=== PATIENT | female | born 1990 | race Caucasian/White ===

== ENCOUNTER 2016-02-25 01:14 | Emergency (ER) | payer SELFPAY ==
[~2016-02-25] VITALS: Ht 160 cm; Wt 53.5 kg
[~2016-02-25 01:14] MED LIST: ATEN-51 PO; HYDR-3498 PO; IBUP-1542 PO
[2016-02-25 01:17] VITALS: Ht 160 cm; Wt 53.5 kg
[2016-02-25] MEDS ORDERED: SOD CHLORIDE 0.9% 1,000 ML IV STA (02:20)
[2016-02-25] MEDS ORDERED: ONDANSETRON 4 MG INJ IV STA (02:20)
[2016-02-25] MEDS ORDERED: morphine 4 MG/ML VIAL IV STA ×2 (02:20→04:55)
[2016-02-25] MEDS ORDERED: LORAZEPAM 2 MG INJ IV ONE ×2 (02:30→04:00)
[2016-02-25 02:49] LABS: BASOPHILS % 0.4 % (0.0-2.0); EOSINOPHILS # 0.1 10^3/ul (0.0-0.5); HEMATOCRIT 38.6 % (37.0-47.0); HEMOGLOBIN 13.4 g/dl (12.0-16.0); MEAN CORPUSCULAR HEMOGLOBIN 26.9 pg (29.0-33.0); MEAN CORPUSCULAR HGB CONC 34.6 g/dl (32.0-37.0); MEAN CORPUSCULAR VOLUME 77.9 fl (82.0-101.0); MONOCYTE # 1.2 10^3/ul (0.3-0.9); MONOCYTES % 10.7 % (0.0-11.0); NEUTROPHIL # 6.8 10^3/ul (1.6-7.5); NEUTROPHILS % 60.9 % (39.0-77.0); PLATELET COUNT 229 10^3/UL (140-440); RED BLOOD COUNT 4.96 10^6/ul (4.20-5.40); RED CELL DISTRIBUTION WIDTH 12.3 % (11.5-14.5); UNCORRECTED WBC 11.1 10^3/ul (4.8-10.8); WHITE BLOOD COUNT 11.1 10^3/ul (4.8-10.8)
[2016-02-25 02:52] LABS: POTASSIUM 4.4 mmol/L (3.5-5.1)
[2016-02-25 02:54] LABS: ALBUMIN/GLOBULIN RATIO 0.9; BILIRUBIN,INDIRECT 0.2 mg/dl (0-1.1); BILIRUBIN,TOTAL 0.2 mg/dl (0.2-1.3); CREATININE 0.48 mg/dl (0.44-1.00); TOTAL PROTEIN 8.4 g/dl (6.1-8.1)
[2016-02-25 02:55] LABS: CALCIUM 9.3 mg/dl (8.4-10.2)
[2016-02-25 02:56] LABS: CONDITION 1; LH ANALYZER COMMENTS 1
[2016-02-25 03:06] LABS: ADD UMIC YES; URINE BILIRUBIN (Dip) NEGATIVE (NEGATIVE); URINE BLOOD (Dip) 3+ (NEGATIVE); URINE COLOR LT. YELLOW (YELLOW); URINE GLUCOSE (Dip) NEGATIVE (NEGATIVE); URINE KETONES (Dip) NEGATIVE (NEGATIVE); URINE LEUKOCYTE ESTERASE (Dip) 1+ (NEGATIVE); URINE NITRITE (Dip) NEGATIVE (NEGATIVE); URINE TOTAL PROTEIN (Dip) NEGATIVE (NEGATIVE); URINE UROBILINOGEN (Dip) 0.2 E.U./dL (0.1-1.0)
[2016-02-25 03:26] LABS: BACTERIA,URINE MANY
[2016-02-25 03:27] LABS: URINE RBCS >200 /HPF (0)
[2016-02-25 03:28] LABS: SQUAMOUS EPITHELIAL CELL,UR MODERATE
[2016-02-25] MEDS ORDERED: CEFTRIAXONE 1 GM/50 ML (PMX) 50 ML IVPB ONE (04:00)
[2016-02-25] MEDS ORDERED: SOD CHLORIDE 0.9% 1,000 ML IV ONE ×2 (04:00→05:30)
--- NOTE | 2016-02-25 04:30 | RADRPT ---
PROCEDURE: CT Abdomen and pelvis without contrast. CLINICAL INDICATION: Abdominal pain. TECHNIQUE: CT scan of the abdomen and pelvis was performed on the [employer] [facility] 6 4 slice VCT scanner. Contiguous axial images using 2.5 mm slice thickness were obtained from the hong ng bases to the ischial tuberosities without intravenous contrast. Coronal and sagittal reformatted images were also obtained. Images were reviewed on the PACS workstation. One or more of the following dose reduction techniques were used: - Automated exposure control. - Adjustment of the mA and/or kV according to patient size. - Use of iterative reconstruction technique. Exam CTD/vol = 5.55 mGy. Total exam DLP = 308.47 mGy-cm. COMPARISON: None. FINDINGS: Evaluation of the lung bases demonstrates minimal left basilar atelectasis. Abdomen: The liver is normal in size. There is no focal mass or dilatation of the biliary tree. T he gallbladder is not distended. The spleen, pancreas and bilateral adrenal glands are within sandra l limits. Bilateral kidneys are normal in size with no contour deforming mass identified. There is no radiopaque renal or ureteral calculus identified. There is no hydronephrosis or hydroureter. T here is no retroperitoneal adenopathy. The abdominal aorta is of normal caliber. There is moderate retained stool within the colon. There is no bowel obstruction or free air. A no rmal appendix is identified. There is no diverticulosis or diverticulitis. There is no ascites. Pelvis: The bladder demonstrates mild wall thickening. The uterus and adnexa are within normal rendon its. There is no significant pelvic adenopathy or free fluid. Evaluation of the osseous structures demonstrates no suspicious lytic or blastic lesion. IMPRESSION: Mild bladder wall thickening could suggest cystitis. Clinical correlation is needed. Moderate retained stool within the colon. .Jake Sanders MD, Date Time Electronically viewed and signed by .Jake Sanders MD, MD on 02/25/2016 04:30 .T/
[2016-02-25] MEDS ORDERED: NAPR-688 PO (04:59)
[2016-02-25] MEDS ORDERED: CIPR500T4 PO (04:59)
[2016-02-25] MEDS ORDERED: POLY17PO6 PO (05:02)
[2016-02-25] MEDS ORDERED: HYDR-906 PO (05:02)
[2016-02-25] MEDS ORDERED: MAGN296S40 PO (05:02)
[2016-02-25] MEDS ORDERED: ONDANSETRON 4 MG INJ IV PRN (06:30)
[2016-02-25] MEDS ORDERED: ACETAMINOPHEN 325 MG TAB PO PRN (06:30)
[2016-02-25 07:03] LABS: BARBITURATES Negative (NEGATIVE); BENZODIAZEPINES Negative (NEGATIVE); CANNABINOIDS Positive (NEGATIVE); COCAINE Negative (NEGATIVE); OPIATES Negative (NEGATIVE)
--- NOTE | 2016-02-25 07:22 | ERD ---
ER Documentation Chief Complaint Date/Time DATE: 02/25/16 TIME: 07:18 Chief Complaint lower abd pain x 1 week HPI This 25-year-old female presents with lower abdominal pain around her bladder area for one week. She's also had increased urinary frequency. Denies fever and chills. The pain is a achy pain that does not radiate. ROS All systems reviewed and are negative except as per history of present illness. Medications Home Meds Active Scripts Hydrocodone/Acetaminophen ([place] 5-325 Tablet) 1 Each Tablet, 1 EACH PO Q6 Y for SEVERE PAIN LEVEL 7-10, #10 TAB Prov:ILEANA BARILLAS DO 02/25/16 Magnesium Citrate* (Magnesium Citrate*) 296 Ml Solution, 296 ML PO ONCE, #1 BOTTLE Prov:ILEANA BARILLAS DO 02/25/16 Polyethylene Glycol* (Miralax*) 17 Gm Powd.pack, 17 GM PO DAILY, #7 Prov:NARGISILEANA DO 02/25/16 Naproxen* (Naproxen*) 500 Mg Tablet, 500 MG PO BID, #20 TAB Prov:NARGISILEANA DO 02/25/16 Ciprofloxacin Hcl* (Ciprofloxacin Hcl*) 500 Mg Tablet, 500 MG PO BID for 5 Days , TAB Prov:NARGISILEANA DO 02/25/16 Ibuprofen* (Ibuprofen*) 600 Mg Tablet, 600 MG PO Q6H Y for pa, #30 TAB Prov:KATERINE CALDERON [employer] 04/25/15 Hydrocodone Bit-Acetaminophen* ([place]*) 5-325 Mg Tab, 1 TAB PO Q4H Y for sev, # 30 TAB Prov:KATERINE CALDERON [employer] 04/25/15 Reported Medications Atenolol* (Atenolol*) 25 Mg Tablet, 25 MG PO DAILY, #30 TAB 09/20/15 Allergies Allergies: Coded Allergies: No Known Drug Allergy (Verified Allergy, Unknown, 09/20/15) PMhx/Soc History of Surgery: No Anesthesia Reaction: No Hx Neurological Disorder: No Hx Respiratory Disorders: No Hx Cardiac Disorders: Yes (HTN) Hx Psychiatric Problems: Yes (anxiety) Hx Miscellaneous Medical Probl: Yes (thyroid problem) Hx Alcohol Use: No Hx Substance Use: Yes (METH, marijuana last used yesterday morning) Hx Tobacco Use: No Smoking Status: Never smoker Physical Exam Vitals Vital Signs Date Time Temp Pulse Resp B/P Pulse Ox O2 Delivery O2 Flow Rate FiO2 02/25/16 06:00 131 22 143/87 100 Room Air 02/25/16 04:00 134 22 139/83 100 Room Air 02/25/16 02:06 143 17 143/81 100 Room Air 02/25/16 01:17 98.6 159 20 143/82 100 Physical Exam Const: [] No distress Head: Atraumatic Eyes: Normal Conjunctiva ENT: Normal External Ears, Nose and Mouth. Neck: Full range of motion..~ No meningismus. Resp: Clear to auscultation bilaterally Cardio: Regular tachycardia, no murmurs Abd: Soft, super B tenderness without guarding or rebound, non distended. Normal bowel sounds Skin: No petechiae or rashes Back: No midline or flank tenderness Ext: No cyanosis, or edema Neur: Awake and alert Psych: Normal Mood and Affect Result Diagram: 02/25/1621902/25/16 0220 Results 24 hrs Laboratory Tests Test 02/25/16 02:20 02/25/16 05:29 Alanine Aminotransferase (ALT/SGPT) 47IU/L Albumin 4.0g/dl Albumin/Globulin Ratio 0.90 Alkaline Phosphatase 220IU/L Anion Gap 20 Aspartate Amino Transf (AST/SGOT) 51IU/L Basophils # 0.010^3/ul Basophils % 0.4% Blood Morphology Comment Blood Urea Nitrogen 18mg/dl Calcium Level 9.3mg/dl Carbon Dioxide Level 26mmol/L Chloride Level 103mmol/L Creatinine 0.48mg/dl Direct Bilirubin 0.00mg/dl Eosinophils # 0.110^3/ul Eosinophils % 1.0% Globulin 4.40g/dl Glucose Level 99mg/dl Hematocrit 38.6% Hemoglobin 13.4g/dl Indirect Bilirubin 0.2mg/dl Lipase 112U/L Lymphocytes # 3.010^3/ul Lymphocytes % 27.0% Mean Corpuscular Hemoglobin 26.9pg Mean Corpuscular Hemoglobin Concent 34.6g/dl Mean Corpuscular Volume 77.9fl Mean Platelet Volume 9.0fl Monocytes # 1.210^3/ul Monocytes % 10.7% Neutrophils # 6.810^3/ul Neutrophils % 60.9% Nucleated Red Blood Cells # 0.010^3/ul Nucleated Red Blood Cells % 0.0/100WBC Platelet Count 36618^3/UL Potassium Level 4.4mmol/L Red Blood Count 4.9610^6/ul Red Cell Distribution Width 12.3% Sodium Level 145mmol/L Total Bilirubin 0.2mg/dl Total Protein 8.4g/dl Urine Amphetamines Screen Positive Urine Bacteria MANY Urine Barbiturates Negative Urine Benzodiazepines Screen Negative Urine Bilirubin NEGATIVE Urine Cannabinoids Positive Urine Clarity CLEAR Urine Cocaine Screen Negative Urine Color LT. YELLOW Urine Glucose NEGATIVE% Urine Hemoglobin 3+ Urine Ketones NEGATIVE Urine Leukocyte Esterase 1+ Urine Microscopic RBC >200/HPF Urine Microscopic WBC 0-2/HPF Urine Nitrite NEGATIVE Urine Opiates Screen Negative Urine Specific [place] 1.020 Urine Squamous Epithelial Cells MODERATE Urine Total Protein NEGATIVE Urine Urobilinogen 0.2 E.U./dL Urine pH 5.5 White Blood Count 11.110^3/ul Lactic Acid Level 1.0mmol/L Current Medications Medications (Trade) Dose Ordered Sig/Demar Route PRN Reason Start Time Stop Time Status Last Admin Dose Admin Sodium Chloride (NS) 1,000 ml @ 1,000 mls/hr Q1H STAT IV 02/25/16 02:20 02/25/16 03:19 DC 02/25/16 02:35 Morphine Sulfate (morphine) 4 mg ONCE STAT IV 02/25/16 02:20 02/25/16 02:21 DC 02/25/16 02:35 Ondansetron HCl (Zofran Inj) 4 mg ONCE STAT IV 02/25/16 02:20 02/25/16 02:21 DC 02/25/16 02:35 Lorazepam 1 mg 1 mg ONCE ONCE IV 02/25/16 02:30 02/25/16 02:31 DC 02/25/16 02:36 Ceftriaxone Sodium 50 ml @ 100 mls/hr ONCE ONCE IVPB 02/25/16 04:00 02/25/16 04:29 DC 02/25/16 03:59 Sodium Chloride (NS) 1,000 ml @ 1,000 mls/hr Q1H ONCE IV 02/25/16 04:00 02/25/16 04:59 DC 02/25/16 04:01 Lorazepam (Ativan) 1 mg ONCE ONCE IV 02/25/16 04:00 02/25/16 04:01 DC 02/25/16 03:59 Morphine Sulfate 4 mg 4 mg ONCE STAT IV 02/25/16 04:55 02/25/16 04:56 DC 02/25/16 05:00 Sodium Chloride (NS) 1,000 ml @ 1,000 mls/hr Q1H ONCE IV 02/25/16 05:30 02/25/16 06:29 DC 02/25/16 05:32 Procedures/MDM Patient with urinary check infection and recent methamphetamine use causing tachycardia. He was given 4 mg of morphine as well as IV fluid which decreased her pain she is also given Zofran which resulted nausea completely. Her heart rate was reduced with Ativan and multiple liters of normal saline. She is still slightly tachycardic is positive for methamphetamines. I'm discharging her with MiraLAX, magnesium citrate, [place], ciprofloxacin for 5 days. Naproxen for pain also, primary care follow-up in the next 2-3 days. Departure Diagnosis: Primary Impression: Constipation Additional Impressions: UTI (urinary tract infection) Methamphetamine use Condition: Stable Patient Instructions: Understanding Urinary Tract Infections (UTIs), Constipation (Adult) ILEANA BARILLAS DO Feb 25, 2016 07:22
[2016-02-25 07:24] VITALS: BP 119/179; PULSE 121; RESP 18; TEMP 98.4
== END 2016-02-25 07:40 | disposition home or self-care (01) ==
LOC: E/R 01:14 → UNDOADMIN 06:10 → MS4 06:10 → UNDODISIN 10:15
DX: K59.00 Constipation, unspecified (principal); N39.0 Urinary tract infection, site not specified; F15.10 Other stimulant abuse, uncomplicated; I10 Essential (primary) hypertension; R40.2142 Coma scale, eyes open, spontaneous, at arrival to emergency department; R40.2252 Coma scale, best verbal response, oriented, at arrival to emergency department; R40.2362 Coma scale, best motor response, obeys commands, at arrival to emergency department
CPT/HCPCS: 36415; 74176; 80053; 80307; 81001; 83605; 83690; 85025; 87040; 87086; 93005; 96361; 96374; 96375; 96376; 99285; J0696; J2060; J2270; J2405; J7030; 81003

== ENCOUNTER 2016-05-16 20:34 | Inpatient (IN) | payer MEDICAID ==
[~2016-05-16] VITALS: Ht 162.6 cm; Wt 54.4 kg
[~2016-05-16 20:34] MED LIST changes: +CIPR500T4 PO; +HYDR-906 PO; +MAGN296S40 PO; +NAPR-688 PO; +POLY17PO6 PO
[2016-05-16] MEDS ORDERED: morphine 4 MG/ML VIAL IV STA ×2 (21:15→22:25)
[2016-05-16] MEDS ORDERED: SOD CHLORIDE 0.9% 2,000 ML IV STA (21:15)
[2016-05-16] MEDS ORDERED: ONDANSETRON 4 MG INJ IV STA (21:15)
--- NOTE | 2016-05-16 21:36 | ERA ---
ER Documentation Chief Complaint Date/Time DATE: 05/16/16 TIME: 21:31 Chief Complaint periumbilical pain since this morning HPI Patient is a 25-year-old female who reports stabbing epigastric pain since this morning. She states it was sudden in onset and has not relented since this morning. She says movement makes it worse nothing makes it better. It does not radiate through to the back. She says she is noticing that her heart rate feels a little fast and this is making her feel little short of breath. She denies any fever, coughing, congestion, rhinorrhea, sore throat, otalgia, dizziness, loss of consciousness. She denies any fever, nausea, vomiting, diarrhea, dysuria, hematuria, flank, back pain. She states she has never experienced this before. She denies any lower extremity edema, recent travel, abnormal bleeding, bruises, or rashes. She states she is not . In the remainder of the systems are negative per ROS All systems reviewed and are negative except as per history of present illness. Medications Home Meds Discontinued Reported Medications Atenolol* (Atenolol*) 25 Mg Tablet, 25 MG PO DAILY, #30 TAB 09/20/15 Discontinued Scripts Hydrocodone/Acetaminophen ([place] 5-325 Tablet) 1 Each Tablet, 1 EACH PO Q6 Y for SEVERE PAIN LEVEL 7-10, #10 TAB Prov:NARGISILEANA DO 02/25/16 Magnesium Citrate* (Magnesium Citrate*) 296 Ml Solution, 296 ML PO ONCE, #1 BOTTLE Prov:NARGISILEANA DO 02/25/16 Polyethylene Glycol* (Miralax*) 17 Gm Powd.pack, 17 GM PO DAILY, #7 Prov:NARGISILEANA DO 02/25/16 Naproxen* (Naproxen*) 500 Mg Tablet, 500 MG PO BID, #20 TAB Prov:ILEANA BARILLAS DO 02/25/16 Ciprofloxacin Hcl* (Ciprofloxacin Hcl*) 500 Mg Tablet, 500 MG PO BID for 5 Days , TAB Prov:ILEANA BARILLAS DO 02/25/16 Ibuprofen* (Ibuprofen*) 600 Mg Tablet, 600 MG PO Q6H Y for pa, #30 TAB Prov:KATERINE CALDERON NP 04/25/15 Hydrocodone Bit-Acetaminophen* ([place]*) 5-325 Mg Tab, 1 TAB PO Q4H Y for sev, # 30 TAB Prov:KATERINE CALDERON [place] LuisMary LECHUGA 04/25/15 Allergies Allergies: Coded Allergies: No Known Drug Allergy (Verified Allergy, Unknown, 05/16/16) PMhx/Soc History of Surgery: No Anesthesia Reaction: No Hx Neurological Disorder: No Hx Respiratory Disorders: No Hx Cardiac Disorders: Yes (HTN) Hx Psychiatric Problems: Yes (anxiety) Hx Miscellaneous Medical Probl: Yes (thyroid problem) Hx Alcohol Use: No Hx Substance Use: Yes (METH, marijuana last used yesterday morning) Hx Tobacco Use: No Physical Exam Vitals Vital Signs Date Time Temp Pulse Resp B/P Pulse Ox O2 Delivery O2 Flow Rate FiO2 05/16/16 22:00 129 25 131/84 100 Room Air 05/16/16 20:55 99.4 167 20 178/101 99 Physical Exam Const: [] Well-developed thin female sitting on the bed calmly. She is very pleasant. Head: Atraumatic normocephalic Eyes: Normal Conjunctiva, conjunctive are pink, pupils equally round reactive to light ENT: Normal External Ears, Nose and Mouth. Mucous membranes are moist Neck: Full range of motion..~ No meningismus. Resp: Clear to auscultation bilaterally Cardio: Rate is tachycardic, regular rhythm Abd: Soft, mild tenderness to palpation epigastric, no masses, rebound, or guarding noted Skin: No petechiae or rashes Back: No midline or flank tenderness Ext: No cyanosis, or edema, no calf tenderness to palpation, negative Homans sign Neur: Awake and alert, oriented 3, GCS of 15, nonfocal Psych: Normal Mood and Affect Result Diagram: 05/16/16211405/16/162114 Results 24 hrs Laboratory Tests Test 05/16/16 21:15 05/16/16 21:45 05/16/16 21:57 White Blood Count 9.110^3/ul Red Blood Count 4.5910^6/ul Hemoglobin 12.4g/dl Hematocrit 35.2% Mean Corpuscular Volume 76.7fl Mean Corpuscular Hemoglobin 27.0pg Mean Corpuscular Hemoglobin Concent 35.2g/dl Red Cell Distribution Width 12.7% Platelet Count 81548^3/UL Mean Platelet Volume 10.7fl Neutrophils % 41.5% Lymphocytes % 48.9% Monocytes % 8.8% Eosinophils % 0.5% Basophils % 0.2% Nucleated Red Blood Cells % 0.0/100WBC Neutrophils # 3.810^3/ul Lymphocytes # 4.510^3/ul Monocytes # 0.810^3/ul Eosinophils # 0.110^3/ul Basophils # 0.010^3/ul Nucleated Red Blood Cells # 0.010^3/ul Prothrombin Time 13.4Sec Prothrombin Time Ratio 1.0 INR International Normalized Ratio 1.02 Activated Partial Thromboplast Time 32.1Sec Sodium Level 139mmol/L Potassium Level 3.3mmol/L Chloride Level 103mmol/L Carbon Dioxide Level 24mmol/L Anion Gap 15 Blood Urea Nitrogen 16mg/dl Creatinine 0.41mg/dl Glucose Level 111mg/dl Calcium Level 9.0mg/dl Total Bilirubin 0.6mg/dl Direct Bilirubin 0.00mg/dl Indirect Bilirubin 0.6mg/dl Aspartate Amino Transf (AST/SGOT) 23IU/L Alanine Aminotransferase (ALT/SGPT) 32IU/L Alkaline Phosphatase 189IU/L Troponin I < 0.012ng/ml Total Protein 7.3g/dl Albumin 3.7g/dl Globulin 3.60g/dl Albumin/Globulin Ratio 1.02 Beta HCG, Quantitative < 2.4mIU/ml Thyroid Stimulating Hormone (TSH) < 0.015MIU/L Urine Color LT. YELLOW Urine Clarity CLEAR Urine pH 5.5 Urine Specific [place] <=1.005 Urine Ketones NEGATIVE Urine Nitrite NEGATIVE Urine Bilirubin NEGATIVE Urine Urobilinogen 0.2 E.U./dL Urine Leukocyte Esterase NEGATIVE Urine Hemoglobin NEGATIVE Urine Glucose NEGATIVE% Urine Total Protein NEGATIVE Current Medications Medications (Trade) Dose Ordered Sig/Demar Route PRN Reason Start Time Stop Time Status Last Admin Dose Admin Sodium Chloride (NS) 2,000 ml @ 1,000 mls/hr Q2H STAT IV 05/16/16 21:15 05/16/16 23:14 DC 05/16/16 21:24 Morphine Sulfate (morphine) 4 mg ONCE STAT IV 05/16/16 21:15 05/16/16 21:18 DC 05/16/16 21:27 Ondansetron HCl (Zofran Inj) 4 mg ONCE STAT IV 05/16/16 21:15 05/16/16 21:18 DC 05/16/16 21:27 IV Flush 10 ml 10 ml STK-MED ONCE .ROUTE 05/16/16 22:03 05/16/16 22:04 DC 05/16/16 22:54 Sodium Chloride 100 ml @ ud STK-MED ONCE .ROUTE 05/16/16 22:03 05/16/16 22:04 DC 05/16/16 22:54 Iohexol (Omnipaque) 100 ml @ ud STK-MED ONCE .ROUTE 05/16/16 22:03 05/16/16 22:04 DC 05/16/16 22:54 Morphine Sulfate (morphine) 4 mg ONCE STAT IV 05/16/16 22:25 05/16/16 22:26 DC 05/16/16 22:34 Propranolol HCl (Inderal Iv) 1 mg ONCE ONCE IV 05/17/16 00:30 05/17/16 00:31 Cancel Hydrocortisone (Solu-Cortef) 100 mg ONCE ONCE IV 05/17/16 00:30 05/17/16 00:31 DC 05/17/16 00:35 Metoprolol Tartrate (Lopressor) 5 mg ONCE ONCE IV 05/17/16 00:20 05/17/16 00:21 DC 05/17/16 00:34 Procedures/MDM Eventual includes but is not limited to epigastric pain, gastritis, peptic ulcer disease, pancreatitis, nonspecific abdominal pain, sinus tachycardia, anemia, pulmonary embolus EKG: Rate/Rhythm: Sinus tachycardia at 150 bpm without any evidence of acute ischemia, no old EKG available for comparison QRS, ST, T-waves: No changes consistent w/ acute ischemia Impression: No evidence of ischemia or arrhythmia Chest x-ray does not reveal any acute cardiopulmonary process CT the chest does not reveal pulmonary embolus or any other acute finding CT the abdomen and pelvis does not reveal any acute intra-abdominal process 0030:2 L of fluid have only brought her pulse down to around 130. Patient states she feels slightly improved. Patient's TSH is significantly depressed. Her tachycardia is consistent with thyroid storm. I have ordered propanolol and Solu-Cortef for her symptoms. I will have her admitted to hospital for further management. Departure Diagnosis: Primary Impression: Thyroid crisis or storm Qualified Code: E05.91 - Thyrotoxicosis with thyrotoxic crisis, unspecified thyrotoxicosis type Additional Impressions: Tachycardia Abdominal pain Qualified Code: R10.13 - Epigastric pain Condition: Good ANGELA HUGHES May 16, 2016 21:36
[2016-05-16 21:39] LABS: ADD SCAN DIFF NO
[2016-05-16 21:41] LABS: BASOPHILS % 0.2 % (0.0-2.0); EOSINOPHILS # 0.1 10^3/ul (0.0-0.5); EOSINOPHILS % 0.5 % (0.0-7.0); HEMATOCRIT 35.2 % (37.0-47.0); HEMOGLOBIN 12.4 g/dl (12.0-16.0); LYMPHOCYTES # 4.5 10^3/ul (0.8-2.9); LYMPHOCYTES % 48.9 % (15.0-51.0); MEAN CORPUSCULAR HGB CONC 35.2 g/dl (32.0-37.0); MEAN CORPUSCULAR VOLUME 76.7 fl (82.0-101.0); MEAN PLATELET VOLUME 10.7 fl (7.4-10.4); MONOCYTE # 0.8 10^3/ul (0.3-0.9); MONOCYTES % 8.8 % (0.0-11.0); NEUTROPHIL # 3.8 10^3/ul (1.6-7.5); NEUTROPHILS % 41.5 % (39.0-77.0); PLATELET COUNT 237 10^3/UL (140-415); RED BLOOD COUNT 4.59 10^6/ul (4.20-5.40); RED CELL DISTRIBUTION WIDTH 12.7 % (11.5-14.5); WHITE BLOOD COUNT 9.1 10^3/ul (4.8-10.8)
[2016-05-16 21:54] LABS: ALBUMIN 3.7 g/dl (3.3-4.9); CHLORIDE 103 mmol/L (97-110); POTASSIUM 3.3 mmol/L (3.5-5.1); SODIUM 139 mmol/L (135-144)
--- NOTE | 2016-05-16 21:55 | RADRPT ---
PROCEDURE: XR Chest. CLINICAL INDICATION: chest pain TECHNIQUE: Single frontal view of the chest was obtained COMPARISON: None FINDINGS: The heart and mediastinum are within normal limits. The lungs are clear. There is no pleural effusion or pneumothorax. RPTAT: AA IMPRESSION: No acute disease. .Abiodun Guevara MD, Date Time Electronically viewed and signed by .Abiodun Guevara MD, on 05/16/2016 21:54 .S/
[2016-05-16 21:56] LABS: CREATININE 0.41 mg/dl (0.44-1.00)
[2016-05-16 21:57] LABS: ALANINE AMINOTRANSFERASE 32 IU/L (13-69); ALBUMIN/GLOBULIN RATIO 1.02; ALKALINE PHOSPHATASE 189 IU/L (42-121); ANION GAP 15 (8-16); ASPARTATE AMINO TRANSFERASE 23 IU/L (15-46); BILIRUBIN,INDIRECT 0.6 mg/dl (0-1.1); BILIRUBIN,TOTAL 0.6 mg/dl (0.2-1.3); BLOOD UREA NITROGEN 16 mg/dl (7-20); CARBON DIOXIDE 24 mmol/L (21-31); GLUCOSE 111 mg/dl (70-220); TOTAL PROTEIN 7.3 g/dl (6.1-8.1)
[2016-05-16] MEDS ORDERED: IOHEXOL 100 ML ONE (22:03)
[2016-05-16] MEDS ORDERED: SOD CHLORIDE 0.9% 100 ML ONE (22:03)
[2016-05-16 22:13] LABS: TROPONIN-I < 0.012 ng/ml (0.00-0.12)
[2016-05-16 22:36] LABS: ADD UMIC NO; URINE BILIRUBIN (Dip) NEGATIVE (NEGATIVE); URINE BLOOD (Dip) NEGATIVE (NEGATIVE); URINE COLOR LT. YELLOW (YELLOW); URINE GLUCOSE (Dip) NEGATIVE (NEGATIVE); URINE KETONES (Dip) NEGATIVE (NEGATIVE); URINE LEUKOCYTE ESTERASE (Dip) NEGATIVE (NEGATIVE); URINE NITRITE (Dip) NEGATIVE (NEGATIVE); URINE TOTAL PROTEIN (Dip) NEGATIVE (NEGATIVE); URINE UROBILINOGEN (Dip) 0.2 E.U./dL (0.1-1.0)
[2016-05-16 22:40] LABS: INR 1.02; PROTIME 13.4 Sec (12.2-14.2)
[2016-05-16 22:41] LABS: PARTIAL THROMBOPLASTIN TIME 32.1 Sec (25.0-35.0)
--- NOTE | 2016-05-16 23:25 | RADRPT ---
PROCEDURE: CT chest with contrast/PE protocol CLINICAL INDICATION: Chest pain and abdominal pain TECHNIQUE: The study was performed from the thoracic inlet to the upper abdomen with the use of 95 cc of AP 350 intravenous contrast material per PE protocol. Coronal/sagittal reformatted images and coronal MIP images were generated. The images were reviewed on a PACS workstation. CTDIvol = 21.7 5 mGy and DLP= 500.26 mGycm. COMPARISON: Chest x-ray 05/16/2016 FINDINGS: Lungs, airway and pleura: The trachea and bronchi are patent as well as normal in caliber. The red gs are clear of infiltrates, masses or nodules. The pleural spaces are clear, without effusions. Mediastinum, jessica and cardiovascular: The heart is top normal in size. There is no evidence for pe ricardial effusion. The thoracic aorta is normal in caliber and without dissection. There are no fi lling defects within the pulmonary arteries to suggest emboli. No adenopathy is identified, some sub tle soft tissue in the anterior mediastinum likely reflects residual thymus. The esophagus is sandra l in caliber. Thyromegaly is present, the entire thyroid gland not included in the field of view, no thyroid nodules are present Osseous structures and musculoskeletal findings: There is preservation of bone architecture and min eralization with no evidence for fracture, lytic or blastic lesion. No chest wall abnormalities are present. The axillary regions are unremarkable. Visualized upper abdomen: Please see the separate CT abdomen and pelvis dictation RPTAT:HJJR IMPRESSION: 1. No evidence for pulmonary embolism or acute intrathoracic abnormality. 2. Thyromegaly. 3. Likely small amount of residual thymic tissue in the anterior mediastinum. Physician Carline Date Time Electronically viewed and signed by Physician Carline on 05/16/2016 23:25 /
--- NOTE | 2016-05-16 23:29 | RADRPT ---
PROCEDURE: CT abdomen and pelvis with contrast. CLINICAL INDICATION: Abdominal pain TECHNIQUE: CT scan of the abdomen and pelvis with contrast was performed. Coronal and sagittal im ages were also reformatted. 95 cc Omnipaque 350 intravenous contrast was administered without compl ication. Total exam CTDIvol = 21.60 mGy and DLP = 500.26 mGy-cm. COMPARISON: None. FINDINGS: Visualized lower thorax: The lung bases are clear. There is no evidence for pleural effusion. Liver, gallbladder, pancreas and spleen: Normal hepatic contour, attenuation in size. There is no evidence for liver mass or ductal dilatation. The gallbladder is unremarkable. No common bile duct dilatation is evident. The pancreas is normal. The spleen is top normal, not enlarged. Adrenal glands and genitourinary system: The adrenal glands are normal bilaterally. The kidneys ar e normal in size, contour and attenuation with no evidence for masses, calculi or hydronephrosis. T he ureters are unremarkable. Mild urinary bladder wall thickening of 5 mm may be related to the sub optimally distended state but cystitis is difficult to entirely exclude. Small follicles within the ovaries are suggested bilaterally the most obvious approximately 1 cm on the right (series 6 image 131). The uterus is unremarkable. There is no obvious free fluid in the cul-de-sac. Gastrointestinal system: The stomach, small bowel and large intestine are normal in caliber. There is no evidence of obstruction, ileus or inflammation. The appendix and surrounding fat are normal. A normal amount of fecal debris is present within the colon and there is no wall thickening to sugg est colitis. Peritoneum, retroperitoneum, vessels and lymph nodes: The abdominal aorta is normal in caliber. Th ere is no evidence of pneumoperitoneum. Inferior vena cava is normal in caliber. There is no evide nce for adenopathy. The peritoneal cavity is normal with no evidence for ascites. Osseous structures and musculoskeletal system: There is no evidence for acute osseous abnormality o r muscular pathology. No subcutaneous abnormalities are present. RPTAT:HJJR IMPRESSION: 1. No evidence of appendicitis. 2. Minimal urinary bladder wall thickening possibly related to being suboptimally distended but cys titis is difficult to entirely exclude. Consider urinalysis correlation if not already performed. 3. Small ovarian follicles the most conspicuous 1 cm on the right. Rajinder Verdugo, Physician Date Time Electronically viewed and signed by Rajinder Verdugo, Physician on 05/16/2016 23:29 /
[2016-05-17] VITALS (16 sets, daily range): BP systolic 97–129; BP diastolic 53–79; PULSE 93–114; RESP 15–23; TEMP 98.7; Ht 162.6 cm; Wt 54.4 kg
[2016-05-17] MEDS ORDERED: METOPROLOL 5 MG INJ IV ONE (00:20)
[2016-05-17] MEDS ORDERED: PROPRANOLOL 1 MG INJ IV ONE (00:30)
[2016-05-17] MEDS ORDERED: HYDROCORTISONE 100 MG INJ IV ONE (00:30)
[2016-05-17] MEDS ORDERED: PROPYLTHIOURACIL 50 MG TAB PO ONE (01:00)
[2016-05-17 01:03] LABS: BARBITURATES Negative (NEGATIVE)
[2016-05-17 01:04] LABS: BENZODIAZEPINES Negative (NEGATIVE); CANNABINOIDS Positive (NEGATIVE)
[2016-05-17 01:05] LABS: OPIATES Positive (NEGATIVE)
[2016-05-17 01:06] LABS: COCAINE Negative (NEGATIVE)
[2016-05-17] MEDS ORDERED: NACL 0.9% 3 ML SYG IV SCH (03:30)
[2016-05-17] MEDS: DEXTROSE 5%-0.45% NACL 1,000 ML IV SCH ×4 (03:30→13:39)
[2016-05-17] MEDS ORDERED: ONDANSETRON 4 MG INJ IV PRN (03:30)
[2016-05-17] MEDS ORDERED: NITROGLYCERIN (SL) 0.4 MG TAB SL PRN (03:30)
[2016-05-17] MEDS ORDERED: LORAZEPAM 2 MG INJ IV PRN (03:30)
[2016-05-17] MEDS ORDERED: morphine 2 MG INJ IV PRN (03:30)
[2016-05-17] MEDS ORDERED: ACETAMINOPHEN 325 MG TAB PO PRN (03:30)
[2016-05-17] MEDS ORDERED: POTASSIUM CHLORIDE (SR) 20 MEQ TAB PO ONE (04:23)
--- NOTE | 2016-05-17 05:17 | HP ---
DATE OF ADMISSION: 05/17/2016 CHIEF COMPLAINT: Abdominal pain. HISTORY OF PRESENT ILLNESS: The patient is a 25-year-old female with no significant past medical hi story who presented to the emergency department with abdominal pain. The patient stated that almost exactly 24 hours ago last night while she was on her bed she had a sudden onset of severe abdominal pain, mainly localized just slightly to the left of her epigastric area. The pain progressively chen s been getting worse, and as such, she decided to come to the hospital for evaluation. She denied a ny nausea, vomiting, fever, chills, or chest pain but did report some palpitations. She did report some dysuria to triage nurse, but on my questioning, she denied. She did, however, ask for a chlamy gregg test because her boyfriend was recently diagnosed with it. When the patient presented to the ER, she was in sinus tachycardia with a heart rate of almost 170, blood pressure 178/101, respiratory rate 20, temperature 99.4, oxygen saturation 99% on room air. L aboratory value shows a potassium of 3.3, alkaline phosphatase 189. There was an MCV of 76.7 with a hemoglobin of 12.4. Her TSH was severely low, less than 0.015. A CT chest with contrast was done, and it showed no evidence of PE, but noted was thyromegaly and likely a small amount of residual th ymic tissue. CT abdomen and pelvis with contrast shows minimal urinary bladder wall thickening and small ovarian follicles, the most conspicuous 1 cm on the right. Chest x-ray shows no acute disease . Note that the patient does have a history of methamphetamine use, but she stated she has not used any for several months. Her urine toxicology screen was positive for opiates and cannabinoids. e does report smoking marijuana regularly. REVIEW OF SYSTEMS: A 12-point review as performed and negative except as mentioned in HPI. PAST MEDICAL HISTORY: As per HPI. PAST SURGICAL HISTORY: Denies. SOCIAL HISTORY: She smoked about half a pack a day for a total of 5 years. Denies alcohol. She sm okes marijuana regularly and has a history of methamphetamine use, last being several months ago. FAMILY HISTORY: Mother of breast cancer in her 40s. ALLERGIES: NO KNOWN DRUG ALLERGIES. HOME MEDICATIONS: None. PHYSICAL EXAMINATION: VITAL SIGNS: Blood pressure on the monitor, 120/85, heart rate 115, respiratory rate 20, temperatur e 98.5, oxygen saturation 100% on room air. GENERAL: No acute distress. She is answering questions appropriately and able to speak in full sen tences and pleasant to talk to. HEENT: No obvious head deformity. Pupils are reactive to light. Extraocular muscles intact. NECK: There is fullness of her neck anteriorly/thyromegaly. CARDIOVASCULAR: Tachycardic with regular rhythm. LUNGS: Clear. ABDOMEN: Soft. There is tenderness to deep palpation, slightly to the left of the epigastric area, with no guarding or rebound tenderness. EXTREMITIES: No edema. NEUROLOGIC: No focal deficits. SKIN: There are several tattoos on her aches. No ecchymosis or rashes were noted. LABORATORY: Pertinent positives as mentioned in the HPI. IMAGING: Chest x-ray, chest CT, and CT abdomen and pelvis with results as mentioned in the HPI. IMPRESSION: 1. Severe hyperthyroidism/thyroid storm. 2. Severe sinus tachycardia, secondary to above. 3. History of methamphetamine use. 4. Mild hypokalemia. PLAN: The patient is currently admitted to ICU for close observation. The plan is to put her on st eroids, PTU, and propranolol. She will be placed on IV fluids with dextrose. We will check her thy roid profile. We will place an endocrinology consult. We will correct electrolytes as needed. Further workup and management per clinical course. Dictated By: KAREL GAN/YOHSI Conf#: [id number] DID#: [id number]
[2016-05-17] MEDS ORDERED: PANTOPRAZOLE 40 MG INJ IV SCH (06:00)
[2016-05-17] MEDS: METHYLPREDNISOLONE 125 MG INJ IV SCH ×2 (06:25→13:39)
[2016-05-17] MEDS: PROPRANOLOL 20 MG TAB PO SCH ×2 (07:02→13:40)
[2016-05-17 07:26] LABS: T3 UPTAKE > 65.0 % (23.5-40.5)
[2016-05-17] MEDS ORDERED: PROPYLTHIOURACIL 50 MG TAB PO SCH ×2 (07:30→14:00)
[2016-05-17] MEDS ORDERED: ATENOLOL 25 MG TAB PO SCH (10:30)
[2016-05-17] MEDS ORDERED: METHIMAZOLE 5 MG TAB PO SCH (10:30)
--- NOTE | 2016-05-17 10:32 | CONS ---
Date/Time of Note Date/Time of Note DATE: 05/17/16 TIME: 10:26 Assessment/Plan Assessment/Plan Problems: (1) Hyperthyroidism Status: Chronic Comment: By examination given the exophthalmos on the exam and the clinical picture this is antibody mediated autoimmune hyperthyroidism known his Graves' disease. This patient does not meet clinical criteria for the diagnosis of thyroid storm. She has however been treated very aggressively which I am in concurrence with given that we do not know what is causing her abdominal pain and we do want to run the risk of tipping her over. One day of steroids will not harm her and will actually benefit this and additional give us a chance to get the PTU on board as well as methimazole. From a long-term standpoint she will be on methimazole 20 mg a day and followed up as an outpatient. Should actually be an appropriate candidate for I-131 ablation but that decision is to be made in the future and not at this time. I will follow her along with you. Consultation Date/Type/Reason Admit Date/Time May 17, 2016 at 03:35 Date of Consultation: May 17, 2016 Type of Consultation: Endocrinology Reason for Consultation Hyperthyroidism; antibody mediated autoimmune also known as Graves' disease Referring Provider: KAREL VILLALPANDO MD Hx of Present Illness Otherwise healthy 25-year-old woman admitted with abdominal pain. She has significant hyperthyroidism and review of our old records indicate that she had a suppressed TSH one year ago. The patient has photographs on her cell phone of her self demonstrating the goiter and exophthalmos that are also 1-year-old. She has never been told of the thyroid issue to the best of her recollection has never been on treatment. Her endocrine review of systems is grossly positive for multiple symptoms consistent with thyrotoxicosis most notably she is not having fever chills or sweats alteration in memory mood cognition. Constitutional: no complaints (No fever chills or sweats) Eyes: no complaints (No diplopia) ENT: no complaints Respiratory: no complaints (She does get dyspnea on exertion) Cardiovascular: palpitations (Palpitations with minimal exertion) Gastrointestinal: diarrhea (She does have frequent loose bowel movements consistent with thyrotoxicosis), pain (She had abdominal pain which brought her into the hospital which I believe is unrelated) Musculoskeletal: no complaints Skin: no complaints Neurologic: other (She reports difficulty focusing as if she has attention deficit) Endocrine: other (Multiple positives consistent with thyrotoxicosis), temp intolerance Past Medical History Reported history of hypertension although I am not sure that this diagnosis is accurate she had been on atenolol Past Surgical History Past Surgical Hx: noncontributory Family History Significant Family History: cancer (Breast cancer) Social History Alcohol Use: occasionally Smoking Status: Unknown if ever smoked Drug Use: marijuana (Active marijuana usage), other (History of crystal meth usage) Exam/Review of Systems Vital Signs Vitals Vital Signs Date Time Temp Pulse Resp B/P Pulse Ox O2 Delivery O2 Flow Rate FiO2 05/17/16 08:00 97 05/17/16 06:00 98.6 126/68 98 Room Air 05/17/16 01:59 20 Intake and Output 05/16/16 05/16/16 05/17/16 15:00 23:00 07:00 Intake Total 400 ml Balance 400 ml Exam Constitutional: alert, oriented Psych: nl mood/affect, no complaints Head: atraumatic, normocephalic, other Eyes: EOMI, PERRL, nl conjunctiva, nl lids, nl sclera, other (There is measurable exophthalmos present there is no diplopia there is no disorder of conjugate gaze) ENMT: mucosa pink and moist, nl external ears & nose, nl lips & teeth, nl nasal mucosa & septum Neck: non-tender, supple, thyromegaly (Marked thyromegaly without nodularity) Respiratory: clear to auscultation, normal air movement Cardiovascular: nl pulses, regular rate and rhythm Gastrointestinal: nl liver, spleen, non-tender, soft Extremities: normal pulses Neurological: FORECLOSURE FIELD INSPECTOR II-XII intact, nl mental status, nl speech, nl strength, other (Positive tremor) Skin: other (Multiple tattoos) Results Result Diagram: 05/16/16211405/16/162114 Results 24 hrs Laboratory Tests Test 05/16/16 21:15 05/16/16 21:45 05/16/16 21:57 05/17/16 06:40 White Blood Count 9.1 Red Blood Count 4.59 Hemoglobin 12.4 Hematocrit 35.2 L Mean Corpuscular Volume 76.7 L Mean Corpuscular Hemoglobin 27.0 L Mean Corpuscular Hemoglobin Concent 35.2 Red Cell Distribution Width 12.7 Platelet Count 237 Mean Platelet Volume 10.7 H Neutrophils % 41.5 Lymphocytes % 48.9 Monocytes % 8.8 Eosinophils % 0.5 Basophils % 0.2 Nucleated Red Blood Cells % 0.0 Neutrophils # 3.8 Lymphocytes # 4.5 H Monocytes # 0.8 Eosinophils # 0.1 Basophils # 0.0 Nucleated Red Blood Cells # 0.0 Prothrombin Time 13.4 Prothrombin Time Ratio 1.0 INR International Normalized Ratio 1.02 Activated Partial Thromboplast Time 32.1 Sodium Level 139 Potassium Level 3.3 L Chloride Level 103 Carbon Dioxide Level 24 Anion Gap 15 Blood Urea Nitrogen 16 Creatinine 0.41 L Glucose Level 111 Calcium Level 9.0 Total Bilirubin 0.6 Direct Bilirubin 0.00 Indirect Bilirubin 0.6 Aspartate Amino Transf (AST/SGOT) 23 Alanine Aminotransferase (ALT/SGPT) 32 Alkaline Phosphatase 189 H Troponin I < 0.012 Total Protein 7.3 Albumin 3.7 Globulin 3.60 H Albumin/Globulin Ratio 1.02 Beta HCG, Quantitative < 2.4 Thyroid Stimulating Hormone (TSH) < 0.015 L Urine Color LT. YELLOW Urine Clarity CLEAR Urine pH 5.5 Urine Specific [place] <=1.005 L Urine Ketones NEGATIVE Urine Nitrite NEGATIVE Urine Bilirubin NEGATIVE Urine Urobilinogen 0.2 E.U./dL Urine Leukocyte Esterase NEGATIVE Urine Hemoglobin NEGATIVE Urine Glucose NEGATIVE Urine Total Protein NEGATIVE Urine Opiates Screen Positive Urine Barbiturates Negative Urine Amphetamines Screen Negative Urine Benzodiazepines Screen Negative Urine Cocaine Screen Negative Urine Cannabinoids Positive Free Thyroxine Index 14.30 H Thyroxine (T4) 22.0 H Triiodothyronine (T3) Uptake > 65.0 H Medications Medications Current Medications Dextrose/Sodium Chloride 1,000 ml @ 100 mls/hr Q10H IV Last administered on 03:30; Admin Dose 100 MLS/HR; Start 05/17/16 at 01:00 Dextrose/Sodium Chloride (D5-1/2ns) 1,000 ml @ 100 mls/hr Q10H IV Last administered on 05/17/16 05:47; Admin Dose 100 MLS/HR; Start 05/17/16 at 03:16 Lorazepam (Ativan) 0.5 mg Q6H PRN IV ANXIETY; Start 05/17/16 at 03:30 Ondansetron HCl (Zofran Inj) 4 mg Q6H PRN IV NAUSEA AND/OR VOMITING; Start at 03:30 Nitroglycerin (Nitroglycerin (Sl Tab) 0.4 Mg) 1 tab Q5M PRN SL CHEST PAIN; Start 05/17/16 at 03:30 Acetaminophen (Tylenol Tab) 650 mg Q6H PRN PO PAIN LEVEL 1-3 OR FEVER; Start at 03:30 Morphine Sulfate (morphine) 2 mg Q4H PRN IV PAIN LEVEL 7-10; Start 05/17/16 at 03:30 Pantoprazole (Protonix Iv) 40 mg DAILY@06 IV Last administered on 05/17/16 05: 48; Admin Dose 40 MG; Start 05/17/16 at 06:00 Propylthiouracil (Ptu) 200 mg Q8 PO Last administered on 05/17/16 08:43; Admin Dose 200 MG; Start 05/17/16 at 07:30 Methylprednisolone Sodium Succinate (Solu-Medrol) 100 mg Q8H IV Last administered on 05/17/16 06:25; Admin Dose 100 MG; Start 05/17/16 at 06:00 Propranolol HCl (Inderal) 20 mg Q8 PO Last administered on 05/17/16 07:02; Admin Dose 20 MG; Start 05/17/16 at 04:00 ILEANA SANON MD May 17, 2016 10:32
--- NOTE | 2016-05-17 10:48 | RADRPT ---
PROCEDURE: Thyroid ultrasound CLINICAL INDICATION: Hyperthyroidism TECHNIQUE: Color and rosales-scale ultrasound images of the thyroid were obtained COMPARISON: None available FINDINGS: The right thyroid measures 6.9 x 2.7 x 3.5 cm. The left thyroid measures 6.5 x 2.9 x 3.3 cm. The is thmus measures 12 mm in thickness. Diffuse heterogeneity is seen throughout the thyroid with mildly increased vascularity throughout the thyroid. An 8 mm heterogeneously hypoechoic, ovoid, solid nodule is identified in the midportion of the right thyroid. A 5 mm heterogeneously hypoechoic, ovoid, solid nodule is seen in the midportion of the right thyroi d. A 7 mm heterogeneously hypoechoic, ovoid, solid nodule is seen in the midportion of the right thyroi d. IMPRESSION: Markedly enlarged, heterogeneous thyroid with increased vascularity throughout the thyroid. Finding s are compatible with thyroiditis. Small solid nodules measuring up to 8 mm in the mid right thyroid. Continued follow-up to assess th e stability of these nodules is recommended. RPTAT: AA .Chas Kenyon MD, Date Time Electronically viewed and signed by .Chas Kenyon MD, MD on 05/17/2016 10:48 .P/
--- NOTE | 2016-05-17 14:17 | RADRPT ---
Echocardiogram Report Patient Name: MORGAN DESAI Gender: Female Date: 1990 Study Date: 17-May-2016 Stereotyper Apprentice: Donald Cronin RDCS Location: 105 Ref. Physician: KAREL VILLALPANDO Quality: Good Procedures: Transthoracic echocardiogram with complete 2D, M-Mode, and doppler examination. Indications: Tachycardia. 2D/M Mode Doppler Measurement Value Normal Ranges Measurement Value Normal Ranges LVIDd 2D 4.4 3.5 - 5.6 cm AV Peak Van 1.8 m/sec LVIDs 2D 1.8 2.1 - 4.1 cm AV Peak PG 13.6 mmHg LVPWd 2D 0.8 0.6 - 1.1 cm LVOT Peak Van 1.7 m/sec IVSd 2D 0.7 0.6 - 1.1 cm LVOT Peak PG 11.3 mmHg AoR Diam 2D 2.1 2.0 - 3.7 cm MV E Peak Van 1.1 m/sec EDV 2D 88.8 cm3 MV A Peak Van 0.8 m/sec ESV 2D 5.9 cm3 MV E/A 1.3 LA Dimen 2D 2.7 2.3 - 4.0 cm MV Decel Time [address] [place] 13 MV E/A 1.3 TR Peak Van 2.0 m/sec TR Peak PG 16.0 mmHg RVSP 19.0 mmHg Findings Left Ventricle: Normal left ventricular systolic function. Normal left ventricular cavity size. Normal left ventricular wall thickness. Ejection fraction is visually estimated at 6065 %. Tissue Doppler/Mitral Doppler indices are within normal limits. Right Ventricle: Normal right ventricular size. Normal right ventricular systolic function. Left Atrium: The left atrium is normal in size. Right Atrium: The right atrium is normal in size. Mitral Valve: Normal appearance of the mitral valve. Mild mitral valve regurgitation. Aortic Valve: Normal appearance of the aortic valve. No significant aortic stenosis or insufficiency. Tricuspid Valve: Normal appearance of the tricuspid valve. Estimated peak PA systolic pressure 19 mmHg. There is trace tricuspid regurgitation. Pulmonic Valve: There is trace pulmonic regurgitation. Pericardium: Normal pericardium with no significant pericardial effusion. Aorta: Normal aortic root. IVC: Normal size and normal respiratory collapse consistent with normal right atrial pressure. Conclusions 1.The left ventricle is normal in size and systolic function. 2.Estimated left ventricular ejection fraction of 60-65%. Electronically Signed By: Igor Yancey 17-May-2016 14:16:02 -0700 Patient Name: MORGAN DESAI Study Date: 17-May-2016 [id number]
[2016-05-17] MEDS ORDERED: PROP50TA2 PO (14:42)
[2016-05-17] MEDS ORDERED: TEN25 PO (14:42)
[2016-05-17] MEDS ORDERED: TAP5 PO (14:42)
--- NOTE | 2016-05-17 14:43 | PDOCDIS ---
Discharge Instructions CONDITION Patient Condition: Good HOME CARE INSTRUCTIONS: Diet Instructions: Regular ACTIVITY: Activity Restrictions: No Restrictions FOLLOW UP/APPOINTMENTS Appointments F/U WITH YOUR PCP IN 1-2 WEEKS, F/U WITH AN VEHICLE PAINTER MARIELLA GREER May 17, 2016 14:43
--- NOTE | 2016-05-17 18:40 | DS ---
DATE OF ADMISSION: 05/17/2016 DATE OF DISCHARGE: 05/17/2016 DISCHARGE DIAGNOSES: 1. Abdominal pain, resolved. CT abdomen was negative for any significant findings. 2. Hyperthyroidism. The patient will be discharged with a few days of PTU and methimazole. 3. History of meth use. U-tox shows no current meth use, is positive for opiates and cannabinoids. HOSPITAL COURSE: The patient is a 25-year-old female with a history of crystal meth use. She has a likely history of hyperthyroidism as well. She has some abdominal pain. In the ER, she was in sin us tachycardia, elevated blood pressure. CT of the chest with contrast was done and showed no PE bu t did note thyromegaly. CT abdomen and pelvis showed abnormal urinary bladder wall thickening, smal l ovarian follicles, most conspicuous 1 cm on the right. Chest x-ray showed no acute disease. The patient states that she had not used crystal meth for several months. U-tox that was positive for o piates and cannabinoids. She was seen by endocrinology and saw that she does not have a thyroid sto rm, but does have hypothyroidism. She was started on PTU and methimazole as well as Atenolol and wa s given steroids. The patient was cleared for discharge by endocrinology with plan to discontinue w ith 2 days of PTU and methimazole as well as Atenolol. The day of discharge, the patient's vitals, labs, physical exam were stable. She had no acute complaints. Questions answered. CONDITION ON DISCHARGE: Stable. DISPOSITION: To home. MEDICATIONS: Patient was given prescription for atenolol, methimazole and PTU for 2 days. The [facility] has no reported home medications. FOLLOWUP: The patient is to follow up with PCP in 1 to 2 weeks and with an hydroelectric plant technician. Greater than 30 minutes was spent coordinating discharge of patient. Dictated By: MARIELLA LUBIN/YOSHI Conf#: [id number] DID#: [id number]
== END 2016-05-17 18:00 | disposition home or self-care (01) | DRG 645 ==
LOC: E/R 20:34 → ICU 05-17 02:36
PROVIDERS: ADMIT Internal Medicine; ATTEND Internal Medicine
DX: E05.00 Thyrotoxicosis with diffuse goiter without thyrotoxic crisis or storm (principal); E87.6 Hypokalemia; R10.13 Epigastric pain; F15.90 Other stimulant use, unspecified, uncomplicated; F12.90 Cannabis use, unspecified, uncomplicated; F11.90 Opioid use, unspecified, uncomplicated
CPT/HCPCS: 36415; 71010; 71275; 74177; 76536; 80053; 80307; 81003; 84436; 84443; 84479; 84484; 84702; 85025; 85610; 85730; 86803; 87070; 87081; 87086; 87591; 93005; 93306; 96374; 96375; 96376; J1800; C9113; J1720; J2270; J2405; J2930; J7030; J7042; Q9967

== ENCOUNTER 2016-06-30 02:56 | Inpatient (IN) | payer MEDICAID, OTHER ==
[~2016-06-30] VITALS: Ht 162.6 cm; Wt 52.8 kg
[2016-06-30] VITALS (7 sets, daily range): BP systolic 117–126; BP diastolic 63–77; PULSE 99–107; RESP 16–20; Ht 162.6 cm; Wt 52.8 kg
[~2016-06-30 02:56] MED LIST changes: +ATEN-138 PO; -ATEN-51 PO; -CIPR500T4 PO; -HYDR-3498 PO; -HYDR-906 PO; -IBUP-1542 PO; -MAGN296S40 PO; +METH-493 PO; -NAPR-688 PO; -POLY17PO6 PO; +PROP50TA2 PO
[2016-06-30] MEDS ORDERED: PROPRANOLOL 20 MG TAB PO ONE (05:30)
[2016-06-30 06:02] LABS: ADD SCAN DIFF NO
[2016-06-30 06:19] LABS: INR 1.02; PROTIME 13.4 Sec (12.2-14.2)
[2016-06-30 06:20] LABS: PARTIAL THROMBOPLASTIN TIME 30.9 Sec (25.0-35.0)
[2016-06-30 06:21] LABS: BASOPHILS % 0.2 % (0.0-2.0); EOSINOPHILS % 0.1 % (0.0-7.0); HEMATOCRIT 38.9 % (37.0-47.0); HEMOGLOBIN 13.7 g/dl (12.0-16.0); LYMPHOCYTES # 2.2 10^3/ul (0.8-2.9); LYMPHOCYTES % 13.6 % (15.0-51.0); MEAN CORPUSCULAR HEMOGLOBIN 27.3 pg (29.0-33.0); MEAN CORPUSCULAR HGB CONC 35.2 g/dl (32.0-37.0); MEAN CORPUSCULAR VOLUME 77.6 fl (82.0-101.0); MEAN PLATELET VOLUME 10.7 fl (7.4-10.4); MONOCYTE # 1.5 10^3/ul (0.3-0.9); MONOCYTES % 9.3 % (0.0-11.0); NEUTROPHIL # 12.2 10^3/ul (1.6-7.5); NEUTROPHILS % 76.3 % (39.0-77.0); PLATELET COUNT 220 10^3/UL (140-415); RED BLOOD COUNT 5.01 10^6/ul (4.20-5.40); RED CELL DISTRIBUTION WIDTH 12.5 % (11.5-14.5)
[2016-06-30 06:23] LABS: ALBUMIN 4.2 g/dl (3.3-4.9); CHLORIDE 104 mmol/L (97-110); POTASSIUM 3.4 mmol/L (3.5-5.1); SODIUM 137 mmol/L (135-144)
[2016-06-30 06:24] LABS: ADD UMIC YES; URINE BILIRUBIN (Dip) NEGATIVE (NEGATIVE); URINE BLOOD (Dip) TRACE (NEGATIVE); URINE COLOR LT. YELLOW (YELLOW); URINE GLUCOSE (Dip) NEGATIVE (NEGATIVE); URINE KETONES (Dip) NEGATIVE (NEGATIVE); URINE LEUKOCYTE ESTERASE (Dip) NEGATIVE (NEGATIVE); URINE NITRITE (Dip) NEGATIVE (NEGATIVE); URINE TOTAL PROTEIN (Dip) NEGATIVE (NEGATIVE); URINE UROBILINOGEN (Dip) 0.2 E.U./dL (0.1-1.0)
[2016-06-30 06:25] LABS: ANION GAP 15 (8-16); CARBON DIOXIDE 21 mmol/L (21-31); CREATININE 0.46 mg/dl (0.44-1.00)
[2016-06-30 06:26] LABS: ALANINE AMINOTRANSFERASE 40 IU/L (13-69); ALKALINE PHOSPHATASE 230 IU/L (42-121); ASPARTATE AMINO TRANSFERASE 22 IU/L (15-46); BLOOD UREA NITROGEN 14 mg/dl (7-20); CALCIUM 9.1 mg/dl (8.4-10.2); GLUCOSE 103 mg/dl (70-220); TOTAL PROTEIN 8.4 g/dl (6.1-8.1)
[2016-06-30 06:37] LABS: TROPONIN-I < 0.012 ng/ml (0.00-0.12)
[2016-06-30 06:39] LABS: SQUAMOUS EPITHELIAL CELL,UR FEW
--- NOTE | 2016-06-30 07:54 | ERA ---
ER Documentation Chief Complaint Date/Time DATE: 06/30/16 TIME: 07:50 Chief Complaint body pain for 4 hours- sore throat, both leg pain, back pain (JORDAN PACE PA-C) HPI Patient with a history of hypothyroidism comes in tachycardic at 150-160 but a normal sinus rhythm. Patient's chief complaint consists of body aches, chills and general malaise. Patient reports no sick contacts. Patient has nausea, vomiting, diarrhea, constipation or dysuria, hematuria. Patient is also requesting HIV check while she is here. Patient has no other complaints at this time. (JORDAN PACE PA-C) 25-year-old female with a history of hyperthyroidism noncompliant with medications presenting with generalized body aches. She was found to be tachycardic to the 150s upon presentation. She was initially seen by the JOREG LUIS, but care was transferred to [place]. The patient states that she has been feeling otherwise well without any significant palpitations, chest pain, shortness of breath. She does not think she has been febrile. She denies any cough or dysuria. She states that she was prescribed medication but she cannot afford the medication for her hyperthyroidism. She stopped taking it about 2 months ago. (SHERLYN QUINTANILLA MD) ROS All systems reviewed and are negative except as per history of present illness. (JORDAN PACE PA-C) Medications Home Meds Discontinued Scripts Propylthiouracil* (Propylthiouracil*) 50 Mg Tablet, 300 MG PO Q8 for 2 Days, TAB Prov:MARIELLA GREER 05/17/16 Methimazole* (Methimazole*) 5 Mg Tablet, 20 MG PO QAM for 60 Days, TAB Prov:MARIELLA GREER 05/17/16 Atenolol (Tenormin) 25 Mg Tab, 25 MG PO DAILY for 30 Days, TAB Prov:MARILELA GREER 05/17/16 Allergies Allergies: Coded Allergies: No Known Drug Allergy (Verified Allergy, Unknown, 06/30/16) PMhx/Soc Medical and Surgical Hx: pt denies Surgical Hx History of Surgery: No Anesthesia Reaction: No Hx Neurological Disorder: No Hx Respiratory Disorders: No Hx Cardiac Disorders: No Hx Psychiatric Problems: Yes (anxiety, panic) Hx Miscellaneous Medical Probl: Yes (hyperthyroidism) Hx Alcohol Use: No Hx Substance Use: No Hx Tobacco Use: No Smoking Status: Never smoker (JORDAN PACE PA-C) Hx Miscellaneous Medical Probl: Yes (Hyperthyroidism) (SHERLYN QUINTANILLA MD) FmHx Family History: No coronary disease (SHERLYN QUINTANILLA MD) Physical Exam Vitals Vital Signs Date Time Temp Pulse Resp B/P Pulse Ox O2 Delivery O2 Flow Rate FiO2 06/30/16 10:25 99.4 107 18 126/77 97 Room Air 06/30/16 09:55 102 26 118/71 99 Room Air 06/30/16 08:26 113 23 138/84 99 Room Air 06/30/16 06:15 134 22 123/74 99 Room Air 06/30/16 03:00 102.0 155 20 164/92 98 (SHERLYN QUINTANILLA MD) Physical Exam Const: [] Head: Atraumatic Eyes: Normal Conjunctiva ENT: Normal External Ears, Nose and Mouth. Neck: Full range of motion..~ No meningismus. Resp: Clear to auscultation bilaterally Cardio: Regular rate and rhythm, no murmurs Abd: Soft, non tender, non distended. Normal bowel sounds Skin: No petechiae or rashes Back: No midline or flank tenderness Ext: No cyanosis, or edema Neur: Awake and alert Psych: Normal Mood and Affect (JORDAN PACE PA-C) Physical Exam Const: Well-appearing, no distress Head: Atraumatic Eyes: Normal Conjunctiva ENT: Normal External Ears, Nose and Mouth. Neck: Full range of motion. No meningismus. Resp: Clear to auscultation bilaterally Cardio: Tachycardic with regular rhythm, no murmurs Abd: Soft, non tender, non distended. Normal bowel sounds Skin: No petechiae or rashes Back: No midline or flank tenderness Ext: No cyanosis, or edema Neur: Awake and alert and oriented 3, cranial nerves intact, strength and sensations intact in all 4 extremities Psych: Normal Mood and Affect (SHERLYN QUINTANILLA MD) Result Diagram: 06/30/16 0530 06/30/16 0530 Results 24 hrs Laboratory Tests Test 06/30/16 05:30 06/30/16 05:40 White Blood Count 16.010^3/ul Red Blood Count 5.0110^6/ul Hemoglobin 13.7g/dl Hematocrit 38.9% Mean Corpuscular Volume 77.6fl Mean Corpuscular Hemoglobin 27.3pg Mean Corpuscular Hemoglobin Concent 35.2g/dl Red Cell Distribution Width 12.5% Platelet Count 46320^3/UL Mean Platelet Volume 10.7fl Neutrophils % 76.3% Lymphocytes % 13.6% Monocytes % 9.3% Eosinophils % 0.1% Basophils % 0.2% Nucleated Red Blood Cells % 0.0/100WBC Neutrophils # 12.210^3/ul Lymphocytes # 2.210^3/ul Monocytes # 1.510^3/ul Eosinophils # 0.010^3/ul Basophils # 0.010^3/ul Nucleated Red Blood Cells # 0.010^3/ul Prothrombin Time 13.4Sec Prothrombin Time Ratio 1.0 INR International Normalized Ratio 1.02 Activated Partial Thromboplast Time 30.9Sec Sodium Level 137mmol/L Potassium Level 3.4mmol/L Chloride Level 104mmol/L Carbon Dioxide Level 21mmol/L Anion Gap 15 Blood Urea Nitrogen 14mg/dl Creatinine 0.46mg/dl Glucose Level 103mg/dl Lactic Acid Level 1.2mmol/L Calcium Level 9.1mg/dl Total Bilirubin 1.0mg/dl Direct Bilirubin 0.00mg/dl Indirect Bilirubin 1.0mg/dl Aspartate Amino Transf (AST/SGOT) 22IU/L Alanine Aminotransferase (ALT/SGPT) 40IU/L Alkaline Phosphatase 230IU/L Troponin I < 0.012ng/ml Total Protein 8.4g/dl Albumin 4.2g/dl Globulin 4.20g/dl Albumin/Globulin Ratio 1.00 Urine Color LT. YELLOW Urine Clarity CLEAR Urine pH 5.0 Urine Specific [place] >=1.030 Urine Ketones NEGATIVE Urine Nitrite NEGATIVE Urine Bilirubin NEGATIVE Urine Urobilinogen 0.2 E.U./dL Urine Leukocyte Esterase NEGATIVE Urine Microscopic RBC 2-5/HPF Urine Microscopic WBC 0-2/HPF Urine Squamous Epithelial Cells FEW Urine Hemoglobin TRACE Urine Glucose NEGATIVE% Urine Total Protein NEGATIVE Current Medications Medications (Trade) Dose Ordered Sig/Demar Route PRN Reason Start Time Stop Time Status Last Admin Dose Admin Propranolol HCl (Inderal) 20 mg ONCE ONCE PO 06/30/16 05:30 06/30/16 05:31 DC 06/30/16 06:14 Propranolol HCl (Inderal) 40 mg ONCE ONCE PO 06/30/16 08:30 06/30/16 08:31 DC 06/30/16 08:57 Propranolol HCl (Inderal Iv) 2 mg ONCE ONCE IV 06/30/16 08:30 06/30/16 08:31 DC 06/30/16 08:57 Methimazole (Tapazole) 25 mg ONCE ONCE PO 06/30/16 08:30 06/30/16 08:31 DC 06/30/16 08:56 Ondansetron HCl (Zofran Inj) 4 mg ER BRIDGE PRN IV NAUSEA AND/OR VOMITING 06/30/16 09:00 07/01/16 08:59 Acetaminophen (Tylenol Tab) 650 mg ER BRIDGE PRN PO MILD PAIN/FEVER 06/30/16 09:00 07/01/16 08:59 (SHERLYN QUINTANILLA MD) Procedures/MDM 25-year-old female with history of hypothyroidism resulting tachycardic with chills and sweats general malaise. My most likely diagnosis at this time is thyrotoxicosis. Patient meets sepsis criteria and will be given septic workup and treatment. 20 mg of propranolol p.o will be given to improve tachycardia most likely caused by thyrotoxicosis. Have spoken to my attending and he agrees with the current assessment and plan. Administration of propranolol was delayed. I reevaluated the patient 1 hour after administration of propranolol and IV fluids. Patient's heart rate has decreased to 130. Repeat evaluation reveals the patient feeling much better with no current complaints. Has been getting rest and is in no acute distress at this time. Significant labs are leukocytosis, hypokalemia at 3.4 and an alk phos at 230. Reviewed patient's current condition by my attending Dr. Quintanilla who has recommended that the patient be transferred to ER once since there is now room. Dr. Quintanilla will take over care of patient. (JORDAN PACE PA-C) EKG: Rate/Rhythm: Sinus tachycardia QRS, ST, T-waves: No changes consistent w/ acute ischemia Impression: Sinus tachycardia, no evidence of ischemia Labs: CBC shows leukocytosis, CMP shows elevation of alk phos and mild hypokalemia, lactate normal, troponin negative Chest x-ray shows no acute abnormalities MDM Patient is presenting with symptoms of thyrotoxicosis. Vitals were notable for fever and tachycardia. However she has a normal mental status and does not meet criteria for thyroid storm. Her presentation is likely secondary to noncompliance. A sepsis workup was done but no source of infection was found on exam. I suspect her vital sign abnormalities are due to her hyperthyroidism as opposed to an infection. IV fluids were given. Propranolol 20 mg was given by the PA prior to me seeing the patient. I given additional 40 mg p.o. and 2 mg IV with improvement of her tachycardia to the low 100s. I spoke with , the cured meat packing supervisor on-call for Dr. Cassidy, and she agreed with the plan to admit the patient and with the current medication plan as well. She will see the patient as an inpatient. Patient will be admitted to the telemetry unit. Critical Care Time: 35 minutes Treatments/Evaluations: Close monitoring and treatment of unstable vital signs, cardiorespiratory, and neurologic status, while maintaining tight balance of fluid, respiratory, and cardiac interventions. This time includes discussing the case with the patient and the patients family. This time does not include all procedures stated elsewhere in this record. This time also includes reviewing old records, labs and radiological studies. This time includes examining and re-examining the patient. Additionally, this time also includes arranging care with admitting and consulting physicians. Accepting Care Team: Current data and ongoing care discussed. Time: Time of admission Primary Provider: Gary Consulting: Gisella (endocrinology) Outstanding Data: none (SHERLYN QUINTANILLA MD) Departure Diagnosis: Primary Impression: Hyperthyroidism Additional Impression: Thyrotoxicosis Qualified Code: E05.91 - Thyrotoxicosis with thyrotoxic crisis, unspecified thyrotoxicosis type Condition: Serious Additional Instructions: Dr. Quintanilla will be taking over care of this patient and ED 1. JORDAN PACE PA-C June 30, 2016 07:54 SHERLYN QUINTANILLA MD June 30, 2016 11:31
--- NOTE | 2016-06-30 08:02 | RADRPT ---
PROCEDURE: CHEST - 1 VIEW CLINICAL INDICATION: 25-year-old female with shortness of breath and sepsis. TECHNIQUE: A single frontal AP upright portable view of the chest was performed. The images were reviewed on a PACS workstation. COMPARISON: Chest x-ray May 16, 2016. FINDINGS: The cardiomediastinal silhouette has a normal appearance. There is no evidence for an infiltrate. T he pulmonary vascularity is within normal limits. There is no evidence for pneumothorax or pneumomed iastinum. The osseous structures are intact. IMPRESSION: No evidence for active cardiopulmonary disease. .Carlin Jimenez MD, Date Time Electronically viewed and signed by .Carlin Jimenez MD, on 06/30/2016 08:01 .[place]
[2016-06-30] MEDS: PROPRANOLOL 1 MG INJ IV ONE ×2 (08:29→08:57)
[2016-06-30] MEDS ORDERED: PROPRANOLOL 40 MG TAB PO ONE (08:30)
[2016-06-30] MEDS ORDERED: METHIMAZOLE 5 MG TAB PO ONE (08:30)
[2016-06-30] MEDS ORDERED: ONDANSETRON 4 MG INJ IV PRN (09:00)
[2016-06-30] MEDS ORDERED: ACETAMINOPHEN 325 MG TAB PO PRN ×2 (09:00→12:30)
[2016-06-30] MEDS ORDERED: POTASSIUM CHLORIDE (SR) 20 MEQ TAB PO STA (12:04)
[2016-06-30] MEDS ORDERED: NACL 0.9% 3 ML SYG IV SCH (12:30)
[2016-06-30] MEDS ORDERED: DOCUSATE SODIUM 100 MG CAP PO PRN (12:30)
[2016-06-30] MEDS ORDERED: HYDROCODONE/APAP (5/325) TAB PO PRN (12:30)
[2016-06-30] MEDS: ATENOLOL 25 MG TAB PO SCH ×2 (12:49→21:43)
[2016-06-30 14:00] LABS: FREE T3 > 22.80 pg/ml (2.77-5.27); THYROID STIMULATING HORMONE < 0.015 MIU/L (0.465-4.680)
--- NOTE | 2016-06-30 18:52 | HP ---
DATE OF ADMISSION: 06/30/2016 CHIEF COMPLAINT: Body pain. HISTORY OF PRESENT ILLNESS: The patient is a 25-year-old female with a history of hyperthyroidism a s well as meth use. The patient was recently hospitalized and discharged with medications for hyper thyroidism. The patient was unable to acquire these medications because of her insurance, she prese nts now with body pain, sore throat as well as leg pain and back pain. She was found to have sinus tachycardia with a heart rate in the 150s and 160s. The patient has no other complaints at this [facility]. PAST MEDICAL HISTORY: Hyperthyroidism and history of meth use. PAST SURGICAL HISTORY: Denies. HOME MEDICATIONS: None. ALLERGIES: KNOWN DRUG ALLERGIES. FAMILY HISTORY: The mother of breast cancer in her 40s. SOCIAL HISTORY: She smokes half pack of cigarettes a day for the past several years. Denies alcoho l abuse, smokes marijuana regularly and has a history of methamphetamine use, last use reportedly wa s months ago. REVIEW OF SYSTEMS: A 12-point review of systems negative except that discussed in HPI. PHYSICAL EXAMINATION: VITAL SIGNS: Temperature 98.2, pulse 104, respiratory rate 20, blood pressure is 121/67, saturation 99% on room air. GENERAL: No acute distress, alert and oriented. HEENT: Normocephalic, atraumatic. LUNGS: Clear to auscultation. CARDIOVASCULAR: Tachycardic. ABDOMEN: Nondistended, nontender, soft. EXTREMITIES: No clubbing, cyanosis, or edema. LABORATORY TESTS: White count is 16.0, hemoglobin 16.7, platelets are 220. Chemistry: Sodium is 1 37, potassium is 3.4, lactic acid is 1.2. TSH is 0.15, free T4 5.87, free T3 is greater than 22.8. DIAGNOSTICS: Chest x-ray shows no evidence of active cardiopulmonary disease. ASSESSMENT AND PLAN: 1. Hyperthyroidism with tachycardia, start the patient on atenolol, consulted endocrinology. The p atient will be restarted on her methimazole. 2. History of substance abuse. The patient denies using at this time. 3. Prophylaxis, ambulation. Dictated By: MARIELLA LUBIN/YOSHI Conf#: [id number] DID#: [id number]
[2016-06-30] MEDS ORDERED: ZOLPIDEM 5 MG TAB PO PRN (23:30)
[2016-07-01] VITALS (13 sets, daily range): BP systolic 110–131; BP diastolic 66–87; PULSE 86–109; RESP 16–20
[2016-07-01 06:30] LABS: ADD SCAN DIFF NO
[2016-07-01 06:41] LABS: BASOPHILS % 0.3 % (0.0-2.0); EOSINOPHILS # 0.2 10^3/ul (0.0-0.5); EOSINOPHILS % 1.6 % (0.0-7.0); HEMOGLOBIN 13.5 g/dl (12.0-16.0); LYMPHOCYTES # 3.4 10^3/ul (0.8-2.9); LYMPHOCYTES % 36.8 % (15.0-51.0); MEAN CORPUSCULAR HEMOGLOBIN 27.1 pg (29.0-33.0); MEAN CORPUSCULAR HGB CONC 34.6 g/dl (32.0-37.0); MEAN CORPUSCULAR VOLUME 78.2 fl (82.0-101.0); MEAN PLATELET VOLUME 11.2 fl (7.4-10.4); MONOCYTES % 10.5 % (0.0-11.0); NEUTROPHIL # 4.7 10^3/ul (1.6-7.5); NEUTROPHILS % 50.7 % (39.0-77.0); PLATELET COUNT 216 10^3/UL (140-415); RED BLOOD COUNT 4.99 10^6/ul (4.20-5.40); RED CELL DISTRIBUTION WIDTH 12.8 % (11.5-14.5); WHITE BLOOD COUNT 9.4 10^3/ul (4.8-10.8)
[2016-07-01 07:05] LABS: CALCIUM 9.1 mg/dl (8.4-10.2); CREATININE 0.43 mg/dl (0.44-1.00); MAGNESIUM 1.8 mg/dl (1.7-2.5); PHOSPHORUS 4.5 mg/dl (2.5-4.9)
[2016-07-01] MEDS: ATENOLOL 25 MG TAB PO SCH (08:14)
[2016-07-01] MEDS: morphine 2 MG INJ IV PRN (09:38)
[2016-07-01] MEDS ORDERED: ATENOLOL 25 MG TAB PO ONE (13:30)
--- NOTE | 2016-07-01 17:02 | CONS ---
Date/Time of Note Date/Time of Note DATE: 07/01/16 TIME: 16:49 Assessment/Plan Assessment/Plan Problems: (1) Hyperthyroidism Status: Chronic (2) Thyrotoxicosis Status: Acute Qualifiers: Qualified Code: E05.91 - Thyrotoxicosis with thyrotoxic crisis, unspecified thyrotoxicosis type Additional Assessment/Plan Discussed with patient treatment options. Patient would like to undergo ablation. Will hold antithyroid medication at this time. Change beta blockade to propranolol TID to maintain a heart rate of less than 100 bpm. Will obtain test. Schedule uptake ,scan and ablation. appreciate the opportunity to participate in this patient's care. Consultation Date/Type/Reason Admit Date/Time June 30, 2016 at 10:31 Date of Consultation: July 01, 2016 Type of Consultation: Endocrine Reason for Consultation Thyroid management Referring Provider: MARIELLA GREER Hx of Present Illness 25-year-old female with a history of hyperthyroidism noncompliant with medications. She states that she was prescribed medication but could not afford the medication for her hyperthyroidism. She now presents with complaint of generalized body aches, feeling cold and perspiring. She was found to be tachycardic to the 150s upon presentation. The patient denies chest pain, shortness of breath, weight loss. Does state that she missed a period last month. Constitutional: chills, other (malaise) Eyes: other (large), redness ENT: no complaints Respiratory: no complaints Cardiovascular: palpitations Gastrointestinal: no complaints Genitourinary: no complaints Musculoskeletal: no complaints Skin: no complaints Neurologic: no complaints Endocrine: other (no menses last month), temp intolerance Lymphatic: no complaints Psychological: no complaints Immunologic: no complaints Past Medical History Medical History: hyperthyroid Past Surgical History Past Surgical Hx: noncontributory Family History Significant Family History: no pertinent family hx Social History Alcohol Use: none Smoking Status: Former smoker Drug Use: none Exam/Review of Systems Vital Signs Vitals Vital Signs Date Time Temp Pulse Resp B/P Pulse Ox O2 Delivery O2 Flow Rate FiO2 07/01/16 16:19 109 07/01/16 16:03 99.5 20 129/76 98 06/30/16 10:25 Room Air Intake and Output 06/30/16 06/30/16 07/01/16 15:00 23:00 07:00 Intake Total 480 ml 300 ml Balance 480 ml 300 ml Exam Constitutional: alert, oriented, other (thin) Psych: nl mood/affect Head: normocephalic Eyes: other (exophtalmos) Neck: supple, thyromegaly (tender right side) Respiratory: clear to auscultation Cardiovascular: other (sinus tachycardia) Gastrointestinal: soft Musculoskeletal: nl extremities to inspection Extremities: clubbing (none), cyanosis (none), edema (none), normal pulses Skin: other (clammy) Lymph: nl lymph nodes Results Result Diagram: 07/01/16 0550 07/01/16 0550 Results 24 hrs Laboratory Tests Test 07/01/16 05:50 White Blood Count 9.4 # Red Blood Count 4.99 Hemoglobin 13.5 Hematocrit 39.0 Mean Corpuscular Volume 78.2 L Mean Corpuscular Hemoglobin 27.1 L Mean Corpuscular Hemoglobin Concent 34.6 Red Cell Distribution Width 12.8 Platelet Count 216 Mean Platelet Volume 11.2 H Neutrophils % 50.7 Lymphocytes % 36.8 Monocytes % 10.5 Eosinophils % 1.6 Basophils % 0.3 Nucleated Red Blood Cells % 0.0 Neutrophils # 4.7 Lymphocytes # 3.4 H Monocytes # 1.0 H Eosinophils # 0.2 Basophils # 0.0 Nucleated Red Blood Cells # 0.0 Sodium Level 137 Potassium Level 4.0 Chloride Level 109 Carbon Dioxide Level 22 Anion Gap 10 # Blood Urea Nitrogen 13 Creatinine 0.43 L Glucose Level 103 Calcium Level 9.1 Phosphorus Level 4.5 Magnesium Level 1.8 Medications Medications Current Medications Ondansetron HCl (Zofran Inj) 4 mg Q6H PRN IV NAUSEA AND/OR VOMITING; Start at 12:30 Acetaminophen (Tylenol Tab) 650 mg Q6H PRN PO PAIN LEVEL 1-3 OR FEVER; Start at 12:30 Acetaminophen/ Hydrocodone Bitart ([place] (5/325)) 1 tab Q6H PRN PO MODERATE PAIN LEVEL 4-6; Start 06/30/16 at 12:30 Morphine Sulfate (morphine) 2 mg Q4H PRN IV SEVERE PAIN LEVEL 7-10 Last administered on 07/01/16t 09:38; Admin Dose 2 MG; Start 06/30/16 at 12:30 Docusate Sodium (Colace) 100 mg Q12H PRN PO CONSTIPATION; Start 06/30/16 at 12: 30 Zolpidem Tartrate (Ambien) 10 mg HS PRN PO INSOMNIA; Start 06/30/16 at 23:30 Propranolol HCl (Inderal) 40 mg TID PO ; Start 07/01/16 at 21:00 TYSON REZA MD July 01, 2016 17:02
--- NOTE | 2016-07-01 17:45 | PN ---
Date/Time of Note Date/Time of Note DATE: 07/01/16 TIME: 17:42 Assessment/Plan VTE Prophylaxis VTE Prophylaxis Intervention: ambulation Lines/Catheters IV [facility] Saline Lock Assessment/Plan Chief Complaint/Hosp Course 1. Hyperthyroidism with thyrotoxicosis -Endocrinology consult appreciated, plan is for ablation -Hold off on hypethyroid medications at this time in anticipation of ablation 2. Tachycardia secondary to above Patient switched to propanolol to maintain a heart rate of less than 100 3. History of substance abuse. The patient denies using at this time. Prophylaxis:Ambulation Problems: Subjective 24 Hr Interval Summary Gastrointestinal: pain Exam/Review of Systems Vital Signs Vitals Vital Signs Date Time Temp Pulse Resp B/P Pulse Ox O2 Delivery O2 Flow Rate FiO2 07/01/16 16:19 109 07/01/16 16:03 99.5 20 129/76 98 06/30/16 10:25 Room Air Intake and Output 06/30/16 06/30/16 07/01/16 15:00 23:00 07:00 Intake Total 480 ml 300 ml Balance 480 ml 300 ml Exam Constitutional: alert, oriented Respiratory: clear to auscultation Cardiovascular: other Gastrointestinal: soft, No distended Musculoskeletal: nl extremities to inspection Results Result Diagram: 07/01/16 0550 07/01/16 0550 Results 24 hrs Laboratory Tests Test 07/01/16 05:50 White Blood Count 9.4 # Red Blood Count 4.99 Hemoglobin 13.5 Hematocrit 39.0 Mean Corpuscular Volume 78.2 L Mean Corpuscular Hemoglobin 27.1 L Mean Corpuscular Hemoglobin Concent 34.6 Red Cell Distribution Width 12.8 Platelet Count 216 Mean Platelet Volume 11.2 H Neutrophils % 50.7 Lymphocytes % 36.8 Monocytes % 10.5 Eosinophils % 1.6 Basophils % 0.3 Nucleated Red Blood Cells % 0.0 Neutrophils # 4.7 Lymphocytes # 3.4 H Monocytes # 1.0 H Eosinophils # 0.2 Basophils # 0.0 Nucleated Red Blood Cells # 0.0 Sodium Level 137 Potassium Level 4.0 Chloride Level 109 Carbon Dioxide Level 22 Anion Gap 10 # Blood Urea Nitrogen 13 Creatinine 0.43 L Glucose Level 103 Calcium Level 9.1 Phosphorus Level 4.5 Magnesium Level 1.8 Medications Medications Current Medications Ondansetron HCl (Zofran Inj) 4 mg Q6H PRN IV NAUSEA AND/OR VOMITING; Start at 12:30 Acetaminophen (Tylenol Tab) 650 mg Q6H PRN PO PAIN LEVEL 1-3 OR FEVER; Start at 12:30 Acetaminophen/ Hydrocodone Bitart ([place] (5/325)) 1 tab Q6H PRN PO MODERATE PAIN LEVEL 4-6; Start 06/30/16 at 12:30 Morphine Sulfate (morphine) 2 mg Q4H PRN IV SEVERE PAIN LEVEL 7-10 Last administered on 07/01/16t 09:38; Admin Dose 2 MG; Start 06/30/16 at 12:30 Docusate Sodium (Colace) 100 mg Q12H PRN PO CONSTIPATION; Start 06/30/16 at 12: 30 Zolpidem Tartrate (Ambien) 10 mg HS PRN PO INSOMNIA; Start 06/30/16 at 23:30 Propranolol HCl (Inderal) 40 mg TID PO ; Start 07/01/16 at 21:00 MARIELLA GREER July 01, 2016 17:45
[2016-07-01] MEDS ORDERED: ATENOLOL 25 MG TAB PO SCH (21:00)
[2016-07-01] MEDS: PROPRANOLOL 40 MG TAB PO SCH (21:03)
[2016-07-02] VITALS (12 sets, daily range): BP systolic 110–148; BP diastolic 58–97; PULSE 75–100; RESP 16–20
[2016-07-02] MEDS: morphine 2 MG INJ IV PRN ×3 (04:03→18:08)
[2016-07-02 06:41] LABS: ADD SCAN DIFF NO
[2016-07-02 06:43] LABS: BASOPHILS % 0.2 % (0.0-2.0); EOSINOPHILS % 0.2 % (0.0-7.0); HEMATOCRIT 39.2 % (37.0-47.0); HEMOGLOBIN 13.9 g/dl (12.0-16.0); LYMPHOCYTES # 2.3 10^3/ul (0.8-2.9); LYMPHOCYTES % 16.5 % (15.0-51.0); MEAN CORPUSCULAR HGB CONC 35.5 g/dl (32.0-37.0); MEAN CORPUSCULAR VOLUME 76.3 fl (82.0-101.0); MEAN PLATELET VOLUME 10.8 fl (7.4-10.4); MONOCYTE # 1.3 10^3/ul (0.3-0.9); MONOCYTES % 9.6 % (0.0-11.0); NEUTROPHIL # 10.1 10^3/ul (1.6-7.5); NEUTROPHILS % 73.3 % (39.0-77.0); PLATELET COUNT 209 10^3/UL (140-415); RED BLOOD COUNT 5.14 10^6/ul (4.20-5.40); RED CELL DISTRIBUTION WIDTH 12.1 % (11.5-14.5); WHITE BLOOD COUNT 13.8 10^3/ul (4.8-10.8)
[2016-07-02 07:02] LABS: CALCIUM 9.1 mg/dl (8.4-10.2); CREATININE 0.52 mg/dl (0.44-1.00)
[2016-07-02] MEDS: PROPRANOLOL 40 MG TAB PO SCH ×3 (09:58→21:09)
--- NOTE | 2016-07-02 13:35 | PN ---
Date/Time of Note Date/Time of Note DATE: 07/02/16 TIME: 13:33 Assessment/Plan VTE Prophylaxis VTE Prophylaxis Intervention: ambulation Lines/Catheters [facility] Saline Lock Assessment/Plan Assessment/Plan 1. Hyperthyroidism with thyrotoxicosis -Endocrinology consult appreciated, plan is for ablation -Hold off on hyperthyroid medications at this time in anticipation of ablation -Await endo plan for today, test negative 2. Tachycardia secondary to above Patient switched to propanolol with good control; maintain a heart rate of less than 100 3. History of substance abuse. The patient denies using at this time. Prophylaxis:Ambulation Subjective 24 Hr Interval Summary Free Text/Dictation Planned for thyroid ablation today. No new complaints Exam/Review of Systems Vital Signs Vitals Vital Signs Date Time Temp Pulse Resp B/P Pulse Ox O2 Delivery O2 Flow Rate FiO2 07/02/16 12:55 83 07/02/16 11:28 98.2 20 111/70 99 06/30/16 10:25 Room Air Intake and Output 07/01/16 07/01/16 07/02/16 15:00 23:00 07:00 Intake Total 1200 ml Balance 1200 ml Exam Constitutional: alert, oriented Respiratory: clear to auscultation Cardiovascular: other Gastrointestinal: soft, No distended Musculoskeletal: nl extremities to inspection Results Result Diagram: 07/02/16 0615 07/02/16 0615 Results 24 hrs Laboratory Tests Test 07/01/16 17:30 07/02/16 06:15 Urine Test NEGATIVE White Blood Count 13.8 #H Red Blood Count 5.14 Hemoglobin 13.9 Hematocrit 39.2 Mean Corpuscular Volume 76.3 L Mean Corpuscular Hemoglobin 27.0 L Mean Corpuscular Hemoglobin Concent 35.5 Red Cell Distribution Width 12.1 Platelet Count 209 Mean Platelet Volume 10.8 H Neutrophils % 73.3 Lymphocytes % 16.5 Monocytes % 9.6 Eosinophils % 0.2 Basophils % 0.2 Nucleated Red Blood Cells % 0.0 Neutrophils # 10.1 H Lymphocytes # 2.3 Monocytes # 1.3 H Eosinophils # 0.0 Basophils # 0.0 Nucleated Red Blood Cells # 0.0 Sodium Level 132 L Potassium Level 4.0 Chloride Level 102 Carbon Dioxide Level 23 Anion Gap 11 Blood Urea Nitrogen 13 Creatinine 0.52 Glucose Level 142 Calcium Level 9.1 Medications Medications Current Medications Ondansetron HCl (Zofran Inj) 4 mg Q6H PRN IV NAUSEA AND/OR VOMITING; Start at 12:30 Acetaminophen (Tylenol Tab) 650 mg Q6H PRN PO PAIN LEVEL 1-3 OR FEVER; Start at 12:30 Acetaminophen/ Hydrocodone Bitart ([place] (5/325)) 1 tab Q6H PRN PO MODERATE PAIN LEVEL 4-6; Start 06/30/16 at 12:30 Morphine Sulfate (morphine) 2 mg Q4H PRN IV SEVERE PAIN LEVEL 7-10 Last administered on 07/02/16 12:54; Admin Dose 2 MG; Start 06/30/16 at 12:30 Docusate Sodium (Colace) 100 mg Q12H PRN PO CONSTIPATION; Start 06/30/16 at 12: 30 Zolpidem Tartrate (Ambien) 10 mg HS PRN PO INSOMNIA; Start 06/30/16 at 23:30 Propranolol HCl (Inderal) 40 mg TID PO Last administered on 07/02/16 09:58; Admin Dose 40 MG; Start 07/01/16 at 21:00 KANA ANGUIANO July 02, 2016 13:35
--- NOTE | 2016-07-02 18:05 | CONS ---
Date/Time of Note Date/Time of Note DATE: 07/02/16 TIME: 18:02 Assessment/Plan Assessment/Plan Problems: (1) Hyperthyroidism Status: Chronic Comment: As the patient describes that her pharmacy [facility] had told her that the medication for hyperthyroidism had to be taken as a group of 3 separate medicines. Because 1 of them was not covered she did not take any of the medicines were obtained them. This is led to this admission. The concept of doing a thyroid scan uptake followed by the radioactive iodine is certainly enticing 1. However she had CT scan with IV contrast 6 weeks ago which may create issues with this from a logistical standpoint. For now we will go ahead and get the thyroid scan uptake and then based on that might be able to go ahead and give her the radioactive iodine on her way out the door. If she cannot be given the radioactive iodine ablation then she will need to be given methimazole therapy and only methimazole therapy. She can then get radioactive iodine ablation done in 4 weeks as an outpatient Consultation Date/Type/Reason Admit Date/Time June 30, 2016 at 10:31 Initial Consult Date 07/01/16 Type of Consultation: Endocrine Reason for Consultation Hyperthyroidism; medical noncompliance Referring Provider: MARIELLA GREER 24 HR Interval Summary Free Text/Dictation Patient reports still severely symptomatic and complaints of chest pain Exam/Review of Systems Vital Signs Vitals Vital Signs Date Time Temp Pulse Resp B/P Pulse Ox O2 Delivery O2 Flow Rate FiO2 07/02/16 16:44 82 07/02/16 15:51 97.9 20 116/62 100 06/30/16 10:25 Room Air Intake and Output 07/01/16 07/01/16 07/02/16 15:00 23:00 07:00 Intake Total 1200 ml Balance 1200 ml Exam Clearly hyperthyroid patient sitting in bed Constitutional: alert, oriented Results Result Diagram: 07/02/16 0615 07/02/16 0615 Results 24 hrs Laboratory Tests Test 07/02/16 06:15 White Blood Count 13.8 #H Red Blood Count 5.14 Hemoglobin 13.9 Hematocrit 39.2 Mean Corpuscular Volume 76.3 L Mean Corpuscular Hemoglobin 27.0 L Mean Corpuscular Hemoglobin Concent 35.5 Red Cell Distribution Width 12.1 Platelet Count 209 Mean Platelet Volume 10.8 H Neutrophils % 73.3 Lymphocytes % 16.5 Monocytes % 9.6 Eosinophils % 0.2 Basophils % 0.2 Nucleated Red Blood Cells % 0.0 Neutrophils # 10.1 H Lymphocytes # 2.3 Monocytes # 1.3 H Eosinophils # 0.0 Basophils # 0.0 Nucleated Red Blood Cells # 0.0 Sodium Level 132 L Potassium Level 4.0 Chloride Level 102 Carbon Dioxide Level 23 Anion Gap 11 Blood Urea Nitrogen 13 Creatinine 0.52 Glucose Level 142 Calcium Level 9.1 Medications Medications Current Medications Ondansetron HCl (Zofran Inj) 4 mg Q6H PRN IV NAUSEA AND/OR VOMITING; Start at 12:30 Acetaminophen (Tylenol Tab) 650 mg Q6H PRN PO PAIN LEVEL 1-3 OR FEVER; Start at 12:30 Acetaminophen/ Hydrocodone Bitart ([place] (5/325)) 1 tab Q6H PRN PO MODERATE PAIN LEVEL 4-6; Start 06/30/16 at 12:30 Morphine Sulfate (morphine) 2 mg Q4H PRN IV SEVERE PAIN LEVEL 7-10 Last administered on 07/02/16 12:54; Admin Dose 2 MG; Start 06/30/16 at 12:30 Docusate Sodium (Colace) 100 mg Q12H PRN PO CONSTIPATION; Start 06/30/16 at 12: 30 Zolpidem Tartrate (Ambien) 10 mg HS PRN PO INSOMNIA; Start 06/30/16 at 23:30 Propranolol HCl (Inderal) 40 mg TID PO Last administered on 07/02/16 15:07; Admin Dose 40 MG; Start 07/01/16 at 21:00 ILEANA SANON MD July 02, 2016 18:05
[2016-07-02] MEDS ORDERED: LORAZEPAM 2 MG INJ IV PRN (19:00)
[2016-07-03] VITALS (12 sets, daily range): BP systolic 109–158; BP diastolic 59–85; PULSE 80–101; RESP 16–18
[2016-07-03] MEDS: morphine 2 MG INJ IV PRN ×3 (00:20→19:22)
[2016-07-03] MEDS: ONDANSETRON 4 MG INJ IV PRN ×2 (00:20→08:19)
[2016-07-03] MEDS: PROPRANOLOL 40 MG TAB PO SCH ×2 (08:27→12:33)
--- NOTE | 2016-07-03 13:24 | PDOCDIS ---
Discharge Instructions DIAGNOSIS Discharge Diagnosis: Hyperthyroidism. CONDITION Patient Condition: Stable HOME CARE INSTRUCTIONS: Special Diet: regular FOLLOW UP/APPOINTMENTS Appointments Daniel Cassidy MD Specialty: Endocrinology Office Address: [address] [place], [place] [id number] Office OTHER ORDERS: Other Orders: 1. Take medications as per prescription. 2. Please call Dr. Cassidy's office for appointment. 3. Regular diet as tolerated. 4. Resume activities as tolerated. THELMA ORTIZ NP July 03, 2016 13:24
[2016-07-03] MEDS ORDERED: PROP40TA4 PO (13:25)
--- NOTE | 2016-07-03 13:35 | CONS ---
Date/Time of Note Date/Time of Note DATE: 07/03/16 TIME: 13:31 Assessment/Plan Assessment/Plan Problems: (1) Graves' disease with thyrotoxic crisis Status: Chronic Comment: Patient cannot betreated for 2 more weeks due to recent IV contrast. The plan is outpatient order for !-131 ablation using 10 [id number] on propanolol. one week after I-131 start methimazole at 10 mg daily for 6 weeks then stop methimazole. Then check labs 4 weeks later. Needs order for outpatient Nuclear Med consult in 1-2 weeks and order for I131 ablation in 2 weeks Consultation Date/Type/Reason Admit Date/Time June 30, 2016 at 10:31 Initial Consult Date 07/01/16 Type of Consultation: Endocrine Reason for Consultation Hyperthyroidism-Graves disease- Referring Provider: MARIELLA GREER Exam/Review of Systems Vital Signs Vitals Vital Signs Date Time Temp Pulse Resp B/P Pulse Ox O2 Delivery O2 Flow Rate FiO2 07/03/16 12:34 80 07/03/16 11:41 98.2 17 113/61 100 07/03/16 09:26 Nasal Cannula 0.5 Intake and Output 07/02/16 07/02/16 07/03/16 15:00 23:00 07:00 Intake Total 1200 ml Balance 1200 ml Results Result Diagram: 07/02/16 0615 07/02/1615 Medications Medications Current Medications Ondansetron HCl (Zofran Inj) 4 mg Q6H PRN IV NAUSEA AND/OR VOMITING Last administered on 07/03/16 08:19; Admin Dose 4 MG; Start 06/30/16 at 12:30 Acetaminophen (Tylenol Tab) 650 mg Q6H PRN PO PAIN LEVEL 1-3 OR FEVER; Start at 12:30 Acetaminophen/ Hydrocodone Bitart ([place] (5/325)) 1 tab Q6H PRN PO MODERATE PAIN LEVEL 4-6 Last administered on 07/03/16 10:30; Admin Dose 1 TAB; Start at 12:30 Morphine Sulfate (morphine) 2 mg Q4H PRN IV SEVERE PAIN LEVEL 7-10 Last administered on 07/03/16 08:19; Admin Dose 2 MG; Start 06/30/16 at 12:30 Docusate Sodium (Colace) 100 mg Q12H PRN PO CONSTIPATION; Start 06/30/16 at 12: 30 Zolpidem Tartrate (Ambien) 10 mg HS PRN PO INSOMNIA; Start 06/30/16 at 23:30 Propranolol HCl (Inderal) 40 mg TID PO Last administered on 07/03/16 12:33; Admin Dose 40 MG; Start 07/01/16 at 21:00 Lorazepam (Ativan) 1 mg Q6H PRN IV Anxiety Last administered on 07/02/16 18:58 ; Admin Dose 1 MG; Start 07/02/16 at 19:00 ILEANA SANON MD July 03, 2016 13:35
--- NOTE | 2016-07-03 14:04 | RADRPT ---
PROCEDURE: I - 123 thyroid uptake and scan CLINICAL INDICATION: 25 -year-old patient with hyperthyroidism. TECHNIQUE: Following the oral administration of 0.17 mCi of I - 123, thyroid uptake and scan was o btained. COMPARISON: No prior thyroid scans. Ultrasound of the thyroid gland dated May 17, 2016. FINDINGS: 6 hours radioiodine uptake is 79 % (normal range is 5% - 20%). 24 hours radioiodine uptake is 89 % (normal range is 7% - 35%). The thyroid gland demonstrates an enlarged thyroid gland (approximately 2.5 x normal size) with slig htly heterogeneous distribution of radionuclide throughout the thyroid gland. IMPRESSION: 1. Enlarged thyroid gland with slightly heterogeneous distribution of radionuclide. 2. Markedly elevated radioiodine uptake. RPTAT: HH .Swapna Kohli MD, Date Time Electronically viewed and signed by .Swapna Kohli MD, on 07/03/2016 14:03 .L/
--- NOTE | 2016-07-03 15:05 | DS ---
DATE OF ADMISSION: 06/30/2016 DATE OF DISCHARGE: 07/03/2016 FINAL DIAGNOSES: 1. Hyperthyroidism with thyrotoxicosis. Status post evaluation by endocrinology. Plan for outpatient iodine-131 ablation 2. Sinus tachycardia. 3. History of substance abuse. CLINICAL INFORMATICS SPECIALIST: 1. Dr. Veronica Obando, Endocrinology. 2. Dr. Daniel Cassidy, Endocrinology. HOSPITAL COURSE: This is a 25-year-old female with past medical history of hyperthyroidism as well as methamphetamine abuse, who came to the emergency room because of generalized body pain, sore throat, and back pain. The patient was noticed to be significantly tachycardic with heart rates from 150 to 160. Provided the patient's history of present illness and the diagnostic findings, a clinical decision was made to admit the patient to inpatient setting to have her further evaluated. The patient was admitted to inpatient telemetry floor. An endocrinology consult was called on this patient. The patient was found to have evidence of hyperthyroidism with thyrotoxicosis. There was an initial plan for iodine-131 ablation. Therefore, the patient's methimazole was discontinued. The patient was started on beta johan using propranolol. The patient's tachycardia improved with the propranolol therapy. The patient underwent a nuclear medicine thyroid scan that showed enlarged thyroid gland with slightly exogenous distribution of radionuclide with markedly elevated radioiodine uptake. As per endocrinology, the patient could not be treated for 2 more weeks due to recent IV contrast. The plan is for outpatient iodine-131 ablation. The patient is projected to be started on methimazole 10 mg after iodine-131 for 6 weeks and then stop methimazole and to check labs 4 weeks later. Case management order was done for outpatient nuclear medicine followup including iodine-131 ablation. The patient had some diarrhea. However, the patient's stool for C. diff was negative. The patient's blood cultures were negative. The patient's urine culture was showing inconclusive results. The patient used to be a methamphetamine abuser. However, the patient denied using any methamphetamine at this time. The patient had a stable hospital course. The patient was cleared by consultants to be discharged home. DISCHARGE DISPOSITION/PLAN: The patient will be discharged home today. The patient was instructed to take medications as per prescription. The patient was instructed to call Dr. Cassidy's office for an appointment. The patient was instructed to take a regular diet as tolerated and to resume activities as tolerated. The patient verbalized understanding of her discharge instructions. CONDITION AT DISCHARGE: Stable. DISCHARGE MEDICATIONS: Propranolol 40 mg p.o. t.i.d., 30-day supply. PERTINENT LABORATORY AND DIAGNOSTIC DATA: 1. Chest x-ray. No evidence of acute cardiopulmonary disease. 2. Nuclear medicine thyroid scan. Enlarged thyroid gland with slightly heterogeneous distribution of radionuclide. Markedly elevated radioiodine uptake. 3. Latest CBC: WBC of 13.8, hemoglobin 13.9, hematocrit 39.2, platelet count 209. 4. Latest BMP: Sodium 132, potassium 4.0, chloride 102, carbon dioxide 23, anion gap 11, BUN 13, creatinine 0.52, glucose 142, calcium 9.1. 5. Thyroid panel: TSH less than 0.015, free T4 of 5.87. 6. Stool for C. difficile negative. 7. Blood culture x2 negative. 8. Urine culture. Inconclusive. At this time, I would like to thank Dr. Obando and Dr. Cassidy for seeing the patient and providing clinical recommendations. The case and management of this patient was fully discussed with Dr. Anguiano. Approximately 35 minutes was spent on coordinating the discharge on this patient. THELMA ANGUIANO MD, AM/YOSHI Conf#: [id number] DID#: [id number] MTDD
== END 2016-07-03 20:40 | disposition home or self-care (01) | DRG 645 ==
LOC: FTE 02:56 → TEL 10:31
PROVIDERS: ADMIT Internal Medicine; ATTEND Internal Medicine
DX: E05.01 Thyrotoxicosis with diffuse goiter with thyrotoxic crisis or storm (principal); R52 Pain, unspecified; R00.0 Tachycardia, unspecified; Z87.898 Personal history of other specified conditions; Z91.14 Patient's other noncompliance with medication regimen
CPT/HCPCS: 36415; 71010; 78014; 80048; 80053; 81001; 81003; 83605; 83735; 84100; 84439; 84443; 84481; 84484; 84703; 85025; 85610; 85730; 87040; 87045; 87075; 87086; 87536; 93005; 96374; A9516; J1800; J2060; J2270; J2405

== ENCOUNTER 2017-04-18 05:21 | Inpatient (IN) | END 2017-04-20 18:14 | disposition home or self-care (01) | DRG 775 ==